=== PATIENT | male | born 1965 | race Caucasian/White ===

== ENCOUNTER 2018-09-10 00:26 | Inpatient (IN) | payer BC, SELFPAY ==
[2018-09-10] MEDS ORDERED: Pantoprazole 40 MG VIAL ONE (00:51)
[2018-09-10] MEDS ORDERED: Dicyclomine 20 MG TAB ONE (00:51)
[2018-09-10 00:55] LABS: #Basophils 0.1 thou/uL (0.0-0.2); #Eosinphils 0.1 thou/uL (0.0-0.7); #Lymphocytes 1.2 thou/uL (1.20-3.40); #Monocytes 1.1 thou/uL (0.11-0.59); #Neutrophils 7.1 thou/uL (1.40-6.50); %Basophils 0.6 % (0.0-1.0); %Eosinophils 1.3 % (0.0-10.0); %Lymphocytes 12.9 % (21.0-51.0); %Monocytes 11.1 % (0.0-10.0); %Neutrophils 74.1 % (42.0-75.0); Hemoglobin 15.2 g/dL (14.0-18.0); Mean Corpuscular HGB CONC 33.1 g/dL (32.0-36.0); Mean Corpuscular Hemoglobin 32.5 pg (27.0-31.0); Mean Corpuscular Volume 98.2 fL (78.0-98.0); Mean Platelet Volume 6.9 fL (7.4-10.4); Platelet Count 243 thou/uL (130-400); RBC Distribution Width 11.4 % (11.5-14.5); Red Blood Cell (RBC) Count 4.67 mill/uL (4.70-6.10); White Blood Cell (WBC) Count 9.6 thou/uL (4.8-10.8)
[2018-09-10 01:15] LABS: ALT (SGPT) 15 U/L (8-55); AST (SGOT) 29 U/L (5-34); Albumin 4.4 g/dL (3.5-5.0); Alkaline Phosphatase 121 U/L (40-150); Anion Gap 15 mmol/L (10-20); BUN (Urea Nitrogen) 10 mg/dL (8.4-25.7); Bilirubin, Total 0.6 mg/dL (0.2-1.2); Calc. Creatinine Clearance 0 mL/min (70-130); Calcium 9.9 mg/dL (7.8-10.44); Carbon Dioxide 25 mmol/L (22-29); Chloride 99 mmol/L (98-107); Estimated GFR-MDRD 79; Globulin 3.8 g/dL (2.4-3.5); Glucose 114 mg/dL (70-105); Lipase 24 U/L (8-78); Potassium 4.1 mmol/L (3.5-5.1); Protein, Total 8.2 g/dL (6.0-8.3); Sodium 135 mmol/L (136-145)
[2018-09-10 02:17] LABS: Bilirubin Negative (Negative); Blood, Urine Negative (Negative); Clarity CLEAR (Clear); Glucose, Urine (Dipstick) Negative (Negative); Leukocyte Negative (Negative); Nitrite Negative (Negative); Protein, Urine (Dipstick) Negative (Neg-Trace); Specific Gravity, Urine 1.042 (1.002-1.036); Urobilinogen 0.2 mg/dL (0.2-1.0); pH, Urine 7.5 (5.0-9.0)
[2018-09-10] MEDS ORDERED: Morphine 4 MG/ML VIAL ONE (02:43)
[2018-09-10] MEDS ORDERED: Ondansetron PF 4 MG/2 ML Vial IVP PRN ×2 (05:18→05:21)
[2018-09-10] MEDS ORDERED: Acetaminophen 325 MG TAB PO PRN ×4 (05:18→05:21)
[2018-09-10] MEDS ORDERED: Sodium Chloride 0.9% 1,000 ML IV SCH (05:18)
[2018-09-10] MEDS ORDERED: Ondansetron ODT 4 MG TAB SL PRN ×2 (05:18→05:21)
--- NOTE | 2018-09-10 05:18 | PDOC.FPRHP ---
- History of Present Illness Chief Complaint: abdominal pain History of Present Illness: 53 yo M with PMH HTN, depression presents with severe abdominal pain. Reports 1 day hx pain that woke him up from sleep @ 0400. Pain sharp, worse in epigastric region, constant with worsening bursts. No aggravating or alleviated factors. Describes it as "gas pain x100". Radiates up to chest/esophagus. Went to [facility] earlier in day and discharged home. Denies N/V, melena, bloody stool. Reports constipation. Last good BM Thursday, took 2 dulcolax and had small amount of BM today. Has hx chronic constipation for past few years, takes mag citrate for it. Denies weight or appetite change, fever, chills, night sweats. Pain is currently 9/10 after 4mg morphine and bentyl. ED Course: zofran, morphine 4mg, protonix, bentyl, 1 L - Allergies/Adverse Reactions Allergies Allergy/AdvReac Type Severity Reaction Status Date / Time No Known Allergies Allergy Verified 09/10/18 05:26 - Home Medications Medication Instructions Recorded Confirmed Type Buprenorphine HCl/Naloxone HCl 1 tab PO DAILY 09/10/18 09/10/18 History [Buprenorphin-Naloxon 8-2 mg Sl] Omeprazole 20 mg PO HS 09/10/18 09/10/18 History Propranolol [Inderal] 20 mg PO DAILY 09/10/18 09/10/18 History Venlafaxine HCl [Venlafaxine HCl 37.5 mg PO DAILY 09/10/18 09/10/18 History ER] buPROPion HCl [buPROPion HCl XL] 300 mg PO DAILY 09/10/18 09/10/18 History - History PMHx: HTN, depression, hx of chronic opioid use, hx of a-fib s/p ablation PSHx: 4 back surgeries, hernia repair, cardiac ablation, hemorrhoid surgery FHx:Mom(72) and grandma- [place]. No cancer hx. Social:Uses [employer] for 20-30 years, 4 beers 2 x/wk, no drug use. Lives with near [place]. Recently moved back [facility] from [place]. Works at [employer] - Review of Systems General: denies: fever/chills, weight/appetite/sleep changes, night sweats, fatigue ENT: denies: nasal congestion, rhinorrhea Respiratory: denies: cough, shortness of breath Cardiovascular: reports: chest pain. denies: palpitation, edema Gastrointestinal: reports: constipation, abdominal pain. denies: nausea, vomiting, diarrhea, GI bleeding Genitourinary: denies: dysuria, discharge Skin: denies: rashes, lesions Musculoskeletal: denies: tenderness, stiffness Neurological: denies: numbness, weakness Psychological: reports: anxiety, depression - Vital signs BP: [162/103] HR: [86] RR: [22] Tmax: [99.5] Pox: [97]% on [RA] Wt: [124 kg] - Physical Exam Constitutional: awake, alert and oriented (uncomfortable d/t pain), well developed HEENT: normocephalic and atraumatic, PERRLA, conjunctiva clear, no scleral icterus, grossly normal vision, grossly normal hearing, normal nasal mucosa, MMM Heart: RRR, normal S1/S2, no murmurs/rubs/gallops, pulses present, no edema Lungs: CTAB, no respiratory distress, no wheezing Abdomen: bowel sounds present, no masses/distention, other (diffusely TTP) Musculoskeletal: normal structure, normal tone Neurological: no focal deficit Skin: capillary refill <2 seconds Heme/Lymphatic: no unusual bruising or bleeding Psychiatric: normal mood and affect FMR H&P: Results - Labs Result Diagrams: 09/10/18 00:47 09/10/18 00:47 Lab results: WBC 9.6 thou/uL (4.8-10.8) 09/10/18 00:47 Hgb 15.2 g/dL (14.0-18.0) 09/10/18 00:47 Hct 45.9 % (42.0-52.0) 09/10/18 00:47 MCV 98.2 fL (78.0-98.0) H 09/10/18 00:47 Plt Count 243 thou/uL (130-400) 09/10/18 00:47 Neutrophils % 74.1 % (42.0-75.0) 09/10/18 00:47 Sodium 135 mmol/L (136-145) L 09/10/18 00:47 Potassium 4.1 mmol/L (3.5-5.1) 09/10/18 00:47 Chloride 99 mmol/L (98-107) 09/10/18 00:47 Carbon Dioxide 25 mmol/L (22-29) 09/10/18 00:47 BUN 10 mg/dL (8.4-25.7) 09/10/18 00:47 Creatinine 0.98 mg/dL (0.7-1.3) 09/10/18 00:47 Glucose 114 mg/dL (70-105) H 09/10/18 00:47 Lactic Acid 1.5 mmol/L (0.5-2.2) 09/10/18 03:37 Calcium 9.9 mg/dL (7.8-10.44) 09/10/18 00:47 Total Bilirubin 0.6 mg/dL (0.2-1.2) 09/10/18 00:47 AST 29 U/L (5-34) 09/10/18 00:47 ALT 15 U/L (8-55) 09/10/18 00:47 Alkaline Phosphatase 121 U/L (40-150) 09/10/18 00:47 Serum Total Protein 8.2 g/dL (6.0-8.3) 09/10/18 00:47 Albumin 4.4 g/dL (3.5-5.0) 09/10/18 00:47 Lipase 24 U/L (8-78) 09/10/18 00:47 Urine Ketones Negative mg/dL (Negative) 09/10/18 02:00 Urine Blood Negative (Negative) 09/10/18 02:00 Urine Nitrite Negative (Negative) 09/10/18 02:00 Ur Leukocyte Esterase Negative (Negative) 09/10/18 02:00 FMR H&P: A/P - Problem List (1) Intractable abdominal pain Current Visit: Yes Status: Acute Code(s): R10.9 - UNSPECIFIED ABDOMINAL PAIN (2) Gallbladder mass Current Visit: Yes Status: Acute Code(s): K82.8 - OTHER SPECIFIED DISEASES OF GALLBLADDER (3) HTN (hypertension) Current Visit: Yes Status: Acute Code(s): I10 - ESSENTIAL (PRIMARY) HYPERTENSION (4) Depression Current Visit: Yes Status: Acute Code(s): F32.9 - MAJOR DEPRESSIVE DISORDER , SINGLE EPISODE, UNSPECIFIED (5) A-fib Current Visit: Yes Status: Acute Code(s): I48.91 - UNSPECIFIED ATRIAL FIBRILLATION (6) H/O cardiac radiofrequency ablation Current Visit: Yes Status: Acute Code(s): Z98.890 - OTHER SPECIFIED POSTPROCEDURAL STATES - Plan Intractable abdominal pain 2/2 newly found mass likely carcinoma w/ metastasis - CT ab/pelvis showed gallbladder thickening, hypodense liver lesions concerning for metastasis, large necrotic lymph node near pancreatic head - LFTs normal - consider GI vs surgery consult in am, will need oncology consult as well - morphine 4mg IV prn, will adjust as necessary for improved pain control - non-emergent MRI for further evaluation recommended Constipation - stool softeners latisha and prn HTN - continue home BB - BP elevated 2/2 pain Depression - plan to continue home wellbutrin and effexor Hx opiod use - takes suboxone once daily (TID is prescribed) Afib s/p ablation Diet: NPO Ppx: SCDs Code: FULL Dispo: admit to oncology inpatient FMR H&P: Upper Level - Pertinent history 53 yr old pleasant WM with hx of depression, chronic opioid dependence, and HTN presents for severe abdominal pain. States he woke with the pain around 0400 ( 24 hrs [employer]) and has worsened throughout the day. The pain is constant but comes in wave pattern. Described as gas pain x 100 and is very sharp. The pain radiates up into his chest and esophagus, so it feels. He has not had nausea or vomiting. He does have some chronic constipation and took 2 dulcolax yesterday but has not helped. He had a small BM yesterday and prior to that was 4 days ago. He went to [facility] earlier today for the pain but was sent home with return precautions. He has tried positional changes but nothing seems to make the pain better or particularly worse. He denies changes in weight or weight loss, has had normal energy. No fever/ chills. No diarrhea. No blood in stool or melanotic stool. - Pertinent findings Gen: no acute distress but does appear uncomfortable from pain Heart: RRR, No M/R/G Lungs: CTAB, NO w/r/r Abd: pos murphys, diffusely tender to light and deep palpation in epigastric region and RUQ Ext: no edema in BLE Neuro: no focal deficits, CN 2-[address] abd: irregular gallbladder wall thickening suspicious for neoplastic infiltration. several indeterminant hpodensities seen scattered throughout the liver possibly liver mets, 5.1x2.2.5.2 cm necrotic mass in aishwarya hepatis lateral and posterior to pancreatic head compatible with enlarged lymph node - Plan Date/Time: 09/10/18 5340 I, [Autumn Davila], have evaluated this patient and agree with findings/plan as outlined by social media intern resident. Pertinent changes/additions are listed here. Abdominal pain likely 2/2 gallbladder mass/necrotic mass -normal LFTs -will obtain gallbladder US to further assess CBD and mass -GI consult later this AM for further evaluation -will give PRN morphine and if not adequate, may consider anesthesia consult for further pain control large necrotic mass surrounding pancreatic head -possibly a lymph node -recommend surgery and GI consult gallbladder wall thickening possible liver mets HTN -severe range elevation however likely 2/2 severe pain -cont home meds, may need to add additional agent Depression -cont home meds Hx of a-fib -s/p ablation with normal rate and rhythm currently PCP: [facility] Code status: Full Diet: NPO DVT ppx: hold for now in case of any procedure today Addendum - Attending - Attending Attestation Date/Time: 09/10/18 1220 I personally evaluated the patient and discussed the management with Dr. Harman. I agree with and repeated the History, Examination, Assessment and Plan documented above with any addition or exceptions noted below. Will d/w surgery.
[2018-09-10] MEDS ORDERED: Polyethylene Glycol 3350 17 GM Packet PO PRN (05:19)
[2018-09-10] MEDS ORDERED: Ondansetron ODT 4 MG TAB PO PRN (05:19)
[2018-09-10] MEDS ORDERED: Morphine 4 MG/ML VIAL SLOW IVP PRN (05:19)
[2018-09-10 05:33] VITALS: BMI 34.1
[2018-09-10] MEDS: Morphine 4 MG/ML VIAL SLOW IVP PRN ×5 (05:48→22:24)
[2018-09-10] MEDS: Sodium Chloride 0.9% 1,000 ML IV SCH ×2 (05:51→16:04)
--- NOTE | 2018-09-10 08:05 | CT ---
PRELIMINARY REPORT/[facility]/EMERGENTY AFTER-HOURS PROCEDURE CT Abdomen and Pelvis With Contrast EXAM DATE/TIME: 09/10/2018 12:53 AM CLINICAL HISTORY: 53 years old, male; Pain; Abdominal pain; Acute; Patient HX: M53 presents to the ed via ems for evalu ation of abdominal pain x3-4 days. PT. Reports that he was seen at [place] at 1600 today, was discharged home. PT. Reports associated constipation, reports that his last bm was today. PT. Report s associated straining during bm. PT. Denies any blood in stool, denies passing gas. PT. Describes pa in as cramping, localized diffusely across abdomen and upward into chest. PT. Reports HX of hernia schulz rgery. PT. Reports that his last colonoscopy was 1 year ago. PT. Denies having any CT imaging done at previous facility, was concerned for appendicitis. PT. Denies any n/v o r other associated symptoms TECHNIQUE: Axial computed tomography images of the abdomen and pelvis with intravenous contrast. Coronal reformatted images were created and reviewed. COMPARISON: No relevant prior studies available. FINDINGS: Lower thorax: There is subpleural atelectasis of the dependent portions of the lungs. ABDOMEN: Liver: There are several indeterminate hypodensities seen scattered throughout the liver possibly rep resenting liver metastases. Gallbladder and bile ducts: There is irregular gallbladder wall thickening suspicious for neoplastic infiltration. Pancreas: The pancreas appears normal. No ductal dilatation. Spleen: The spleen is normal. Adrenals: Normal. No mass. Kidneys and ureters: Normal. No hydronephrosis. Stomach and bowel: The stomach is normal. Appendix: No evidence of appendicitis. PELVIS: Bladder: Unremarkable as visualized. Reproductive: The prostate gland and seminal vesicles are normal. ABDOMEN and PELVIS: Intraperitoneal space: Normal. No free air. No significant fluid collection. Bones/joints: No acute fracture. No dislocation. Soft tissues: Unremarkable. Vasculature: Normal. No abdominal aortic aneurysm. Lymph nodes: There is a 5.1 x 2.2 x 5.2 cm necrotic mass in the aishwarya hepatis lateral and posterior to the pancreatic head compatible with a suspiciously enlarged lymph node. IMPRESSION: 1. Possible gallbladder mass with liver metastases. If not already performed, non-emergent MRI may pr ovide better characterization. 2. Abnormally enlarged aishwarya hepatis lymph node suspicious for neoplasm. Findings were discussed with NASIM briscoe at 09/10/2018 2:50 AM EMERGENCY MAN. Thank you for allowing us to participate in the care of your patient. Dictated and Authenticated by: Alvaro Calvin MD 09/10/2018 2:50 AM Central Time ([place] & [place]) FINAL REPORT CT ABDOMEN AND PELVIS WITH IV CONTRAST: 09/10/2018 0054 HOURS HISTORY: Abdominal pain. Exam performed on an emergency basis. FINDINGS: Agree with the preliminary report by from [facility]. Heterogeneously enhancing mass near the aishwarya hepatis, adjacent to the pancreatic head, is confirmed. There is also poor definition of the gallbladder wall, at the fundus, with some thickening apparent . Possible mass. Very subtle low density masses are present within the dome of the right liver lobe . Primary concern is neoplasm over inflammation, with possible origin of neoplasm at the gallbladder neck, pancreatic head, or liver, with metastatic disease. Unfortunately, the lesions do not lend th emselves well to percutaneous biopsy. Please consider endoscopic evaluation for potential ultrasound -guided endoscopic biopsy. POS: [facility]
[2018-09-10 08:45] LABS: Syphilis Antibody Nonreactive (Nonreactive); Syphilis Antibody Index 0.07 S/CO (<1.00 Non-Reactive)
[2018-09-10 08:57] LABS: HBCM Index 0.05 S/CO (0-0.79); HBSAg Index 0.28 S/CO (0-0.99); HIV (1/2) Antibody/Antigen Non-Reactive (NonReactive); HIV 1/2 INDEX 0.08 S/CO (<1.00); Hep A IgM AB Non-Reactive (NonReactive); Hep A IgM S/CO 0.11 S/CO (0-0.79); Hep B Surf Ag Non-Reactive S/CO (NonReactive); Hep C IgG Ab Non-Reactive (NonReactive); Hepatitis B Core IgM Abs Non-Reactive (NonReactive)
[2018-09-10] MEDS ORDERED: Propranolol 40 MG TAB PO SCH (09:00)
[2018-09-10] MEDS ORDERED: Enoxaparin Sodium 40 MG/0.4 ML SYRINGE SC SCH (09:00)
[2018-09-10] MEDS ORDERED: Non-Formulary Item 1 EACH (Bupropion Hcl [Bupropion Hcl Xl] 300 MG) PO SCH (09:00)
--- NOTE | 2018-09-10 09:33 | RAD ---
CHEST TWO VIEWS: HISTORY: Abdominal pain, radiating to the chest. COMPARISON: None. FINDINGS: Two views of the chest show normal sized cardiomediastinal silhouette. There is no evidence of consol idation, mass, or pleural effusion. The bones are unremarkable. IMPRESSION: No evidence of acute cardiopulmonary disease. POS: C
[2018-09-10] MEDS ORDERED: ISOVUE-370 76%-LOCM 1 ML ONE (09:46)
[2018-09-10] MEDS: Bupropion 150 MG XL TAB PO SCH (10:21)
[2018-09-10] MEDS: Venlafaxine XR 37.5 MG CAP PO SCH (10:22)
[2018-09-10] MEDS: Propranolol HCl 20 MG TAB PO SCH (10:23)
[2018-09-10] MEDS: Senokot S 8.6-50 MG TAB PO SCH ×2 (10:27→22:20)
[2018-09-10] MEDS ORDERED: Non-Formulary Item 1 EACH (Omeprazole [Omeprazole] 20 MG) PO SCH (21:00)
[2018-09-11] MEDS ORDERED: HYDROcodone/Acetaminophen 10/325 mg Tablet PO SCH (00:45)
[2018-09-11] MEDS: Morphine 4 MG/ML VIAL SLOW IVP PRN ×5 (02:29→21:33)
--- NOTE | 2018-09-11 05:48 | PDOC.FM ---
Addendum entered and electronically signed by Trish Mo MD 09/11/18 08:33 : -Despite history of chronic drug abuse, patient's pain is uncontrolled and relieved only with Amasa -Will give norco with moprhine for breakthrough pain Original Note: - Subjective Subjective: NAEO, pain well controlled on morphine q4hr. Still pending status on transfer to higher level of care for further diagnostic workup. Denies nausea, vomiting, diarrhea. - Objective MAR Reviewed: Yes Vital Signs & Weight: Vital Signs (12 hours) Temp Pulse Resp BP Pulse Ox 09/11/18 04:05 97.9 F 79 12 122/76 95 09/10/18 23:49 99.0 F 80 12 144/75 H 92 L 09/10/18 20:00 92 L 09/10/18 19:45 98.8 F 77 18 157/85 H 92 L Weight Weight 123.887 kg I&O: 09/09/18 09/10/18 09/11/18 06:59 06:59 06:59 Intake Total 2043 Output Total 650 Balance 1393 Result Diagrams: 09/10/18 00:47 09/10/18 00:47 Phys Exam - Physical Examination Constitutional: NAD HEENT: PERRLA, moist MMs, sclera anicteric, TM's clear Neck: supple, full ROM Cardiovascular: RRR, no significant murmur Gastrointestinal: soft epigastric tenderness, no peritoeal signs Neurological: moves all 4 limbs Psychiatric: normal affect, A&O x 3 Skin: cap refill <2 seconds Dx/Plan (1) Intractable abdominal pain Code(s): R10.9 - UNSPECIFIED ABDOMINAL PAIN Status: Acute (2) Gallbladder mass Code(s): K82.8 - OTHER SPECIFIED DISEASES OF GALLBLADDER Status: Acute (3) Chronic drug abuse Code(s): F19.10 - OTHER PSYCHOACTIVE SUBSTANCE ABUSE, UNCOMPLICATED Status: Acute (4) A-fib Code(s): I48.91 - UNSPECIFIED ATRIAL FIBRILLATION Status: Acute (5) Depression Code(s): F32.9 - MAJOR DEPRESSIVE DISORDER, SINGLE EPISODE, UNSPECIFIED Status : Acute (6) H/O cardiac radiofrequency ablation Code(s): Z98.890 - OTHER SPECIFIED POSTPROCEDURAL STATES Status: Acute (7) HTN (hypertension) Code(s): I10 - ESSENTIAL (PRIMARY) HYPERTENSION Status: Acute - Plan Plan: 53 yo M with 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 admitted for intractable abdominal pain secondary to this Intractable abdominal pain 2/2 GB mass/necrosis - CT ab/pelvis showed gallbladder thickening, hypodense liver lesions concerning for metastasis, large necrotic lymph node near pancreatic head - LFTs normal - Pain controlled on morphine 4mg IV PRN - If high level of care will take long time, will try weaning patient to PO meds for pain and d/c if pain controlled Constipation - stool softeners latisha and prn HTN - continue home BB - BP elevated 2/2 pain Depression - plan to continue home wellbutrin and effexor Hx opiod use - takes suboxone once daily (TID is prescribed) Afib s/p ablation -rate controlled, asx, stable Diet: Ppx: SCDs Code: FULL Dispo: Needs transfer to higher level of care for endoscopic ultrasound. Working on PO pain control if unable to transfer soon. Addendum - Attending - Attending Attestation Date/Time: 09/11/18 0262 I personally evaluated the patient and discussed the management with Dr. Mo I agree with the History, Examination, Assessment and Plan documented above with any addition or exceptions noted below. spoke with Dr Saldana with [facility] USERCP not done urgently POC to control pain and schedule outpatient GI f/u for USERCP with biopsy. If pain remains intractable will [facility] will reconsider acceptance after weekend for Higher level of care.
[2018-09-11] MEDS ORDERED: HYDROcodone/Acetaminophen 5/325 mg Tablet PO PRN (08:06)
[2018-09-11] MEDS ORDERED: traMADol HCl 50 MG TAB PO SCH (08:15)
[2018-09-11] MEDS ORDERED: HYDROcodone/Acetaminophen 5/325 mg Tablet PO SCH (09:00)
[2018-09-11] MEDS: Enoxaparin Sodium 40 MG/0.4 ML SYRINGE SC SCH (09:29)
[2018-09-11] MEDS: HYDROcodone/Acetaminophen 5/325 mg Tablet PO SCH ×4 (09:36→20:32)
[2018-09-11] MEDS: Senokot S 8.6-50 MG TAB PO SCH ×2 (09:38→20:32)
[2018-09-11] MEDS: Bupropion 150 MG XL TAB PO SCH (09:38)
[2018-09-11] MEDS: Propranolol HCl 20 MG TAB PO SCH (09:39)
[2018-09-11] MEDS: Venlafaxine XR 37.5 MG CAP PO SCH (09:39)
[2018-09-12] MEDS: HYDROcodone/Acetaminophen 5/325 mg Tablet PO SCH ×5 (00:35→21:18)
[2018-09-12] MEDS: Morphine 4 MG/ML VIAL SLOW IVP PRN (01:32)
[2018-09-12] MEDS ORDERED: Morphine ER 15 MG TAB PO SCH ×2 (03:15→09:00)
[2018-09-12] MEDS ORDERED: HYDROcodone/Acetaminophen 5/325 mg Tablet PO PRN (05:43)
[2018-09-12] MEDS ORDERED: Morphine 4 MG/ML VIAL SLOW IVP PRN (05:44)
--- NOTE | 2018-09-12 05:48 | PDOC.FM ---
- Subjective Subjective: pain controlled with norco. no BM for few days, would like something. abd pain improved overall. - Objective MAR Reviewed: Yes Vital Signs & Weight: Vital Signs (12 hours) Temp Pulse Resp BP Pulse Ox 09/12/18 03:42 98.3 F 74 16 119/72 92 L 09/11/18 23:31 98.6 F 76 12 126/76 93 L 09/11/18 20:00 98 09/11/18 19:46 98.1 F 80 12 139/82 98 Weight Weight 123.887 kg I&O: 09/10/18 09/11/18 09/12/18 06:59 06:59 06:59 Intake Total 2355 Output Total 650 Balance 1705 Result Diagrams: 09/10/18 00:47 09/12/18 11:40 Phys Exam - Physical Examination Constitutional: NAD HEENT: PERRLA, moist MMs Neck: no nodes, full ROM Respiratory: no wheezing, clear to auscultation bilateral Cardiovascular: RRR, no significant murmur Gastrointestinal: soft, no distention mild TTP over right lower intercostal areas Neurological: non-focal, normal sensation, moves all 4 limbs Psychiatric: normal affect, A&O x 3 Dx/Plan (1) Intractable abdominal pain Code(s): R10.9 - UNSPECIFIED ABDOMINAL PAIN Status: Acute (2) Gallbladder mass Code(s): K82.8 - OTHER SPECIFIED DISEASES OF GALLBLADDER Status: Acute (3) Chronic drug abuse Code(s): F19.10 - OTHER PSYCHOACTIVE SUBSTANCE ABUSE, UNCOMPLICATED Status: Acute (4) A-fib Code(s): I48.91 - UNSPECIFIED ATRIAL FIBRILLATION Status: Acute (5) Depression Code(s): F32.9 - MAJOR DEPRESSIVE DISORDER, SINGLE EPISODE, UNSPECIFIED Status : Acute (6) H/O cardiac radiofrequency ablation Code(s): Z98.890 - OTHER SPECIFIED POSTPROCEDURAL STATES Status: Acute (7) HTN (hypertension) Code(s): I10 - ESSENTIAL (PRIMARY) HYPERTENSION Status: Acute - Plan Plan: 53 yo M with 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 for USERCP. Or else can discharge with outpt follow up Constipation - senekot and miralax STEPHY HTN - continue home BB - BP elevated 2/2 pain Depression - plan to continue home wellbutrin and effexor Hx opiod use - takes suboxone once daily (TID is prescribed) Afib s/p ablation -rate controlled, asx, stable Diet: HH Ppx: SCDs Code: FULL Dispo: Pain control with PO meds: MS contin & Malone STEPHY. Chest/Abd pain- possible constipation, will add miralax STEPHY daily, CT Chest to eval for mets. If pain controlled can d/c later this evening Addendum - Attending - Attending Attestation Date/Time: 09/12/18 7626 I personally evaluated the patient and discussed the management with I agree with the History, Examination, Assessment and Plan documented above with any addition or exceptions noted below. will start scheduled norco and CT chest today ok dismiss if pain controled and stable for outpatient f/u US ERCP with GI at [facility] providers in [place] unless inpt transfer indicated. Have been in contact with Dr Saldana regard coordination of care to address further diagnostic evaluation.
[2018-09-12] MEDS: Bupropion 150 MG XL TAB PO SCH (08:39)
[2018-09-12] MEDS: Enoxaparin Sodium 40 MG/0.4 ML SYRINGE SC SCH (08:40)
[2018-09-12] MEDS: Morphine ER 15 MG TAB PO SCH ×2 (08:40→21:16)
[2018-09-12] MEDS: Senokot S 8.6-50 MG TAB PO SCH ×2 (08:41→21:16)
[2018-09-12] MEDS: Propranolol HCl 20 MG TAB PO SCH (08:41)
[2018-09-12] MEDS: Venlafaxine XR 37.5 MG CAP PO SCH (08:42)
[2018-09-12] MEDS: Polyethylene Glycol 3350 17 GM Packet PO SCH (08:45)
[2018-09-12] MEDS ORDERED: ISOVUE-370 76%-LOCM 1 ML ONE (10:00)
[2018-09-12] MEDS ORDERED: HYDROcodone/Acetaminophen 5/325 mg Tablet PO SCH ×2 (12:00→13:00)
[2018-09-12 12:07] LABS: Anion Gap 17 mmol/L (10-20); BUN (Urea Nitrogen) 11 mg/dL (8.4-25.7); Calc. Creatinine Clearance 134 mL/min (70-130); Calcium 9.4 mg/dL (7.8-10.44); Carbon Dioxide 23 mmol/L (22-29); Chloride 103 mmol/L (98-107); Estimated GFR-MDRD 70; Glucose 120 mg/dL (70-105); Potassium 3.9 mmol/L (3.5-5.1); Sodium 139 mmol/L (136-145)
--- NOTE | 2018-09-12 14:36 | CT ---
CT OF CHEST WITH CONTRAST: Date: 09/12/18 INDICATION: Right chest pain. History of recently diagnosed gallbladder abnormality with adjacent findings suspic ious for metastasis at the upper abdomen. FINDINGS: Granulomatous calcification is seen within the chest. There are bilateral linear densities of each irene ng indicating subsegmental atelectasis. No evidence of pulmonary mass. No effusion or pneumothorax. T horacic lymph nodes are not enlarged by size criteria. There is atherosclerotic vascular disease and coronary artery calcium is noted. Please reference preceding CT from 2 days prior for details regardi ng pathologic findings of the gallbladder, which are concerning for gallbladder carcinoma with adjace nt invasion into hepatic parenchyma and large necrotic appearing central abdominal adenopathy, with f indings suspicious for malignancy and metastasis. There are additional enlarged upper abdominal lymph nodes, also likely metastatic in etiology. Evaluation of regional osseous structures reveals degener ative change. IMPRESSION: 1. No pulmonary metastatic disease is confirmed. 2. Partially imaged upper abdomen redemonstrates findings concerning for gallbladder carcinoma with regional invasion of the adjacent liver, as well as metastatic adenopathy of the visualized upper abd omen. POS: [facility]
[2018-09-12] MEDS ORDERED: hydrOXYzine 25 MG TAB PO SCH (17:00)
[2018-09-13] MEDS: HYDROcodone/Acetaminophen 5/325 mg Tablet PO SCH ×6 (02:04→21:55)
[2018-09-13] MEDS ORDERED: hydrOXYzine 25 MG TAB PO SCH (03:15)
--- NOTE | 2018-09-13 07:36 | PDOC.FM ---
- Subjective Subjective: Endorses pain controlled on MS Contin 15mg BID and norco for breakthrough pain. Would like to go home and schedule procedure outpatient. - Objective MAR Reviewed: Yes Vital Signs & Weight: Vital Signs (12 hours) Temp Pulse Resp BP Pulse Ox 09/13/18 05:41 97.8 F 73 18 121/71 94 L 09/12/18 20:00 96 Weight Weight 123.887 kg I&O: 09/12/18 09/13/18 09/14/18 06:59 06:59 06:59 Intake Total 312 Balance 312 Result Diagrams: 09/10/18 00:47 09/12/18 11:40 Phys Exam - Physical Examination Constitutional: NAD Respiratory: no wheezing, no rales, clear to auscultation bilateral Cardiovascular: RRR, no significant murmur Gastrointestinal: soft, non-tender, no distention Musculoskeletal: no edema, pulses present Neurological: non-focal, normal sensation Psychiatric: normal affect, A&O x 3 Skin: no rash, cap refill <2 seconds Dx/Plan (1) Opioid dependence Code(s): F11.20 - OPIOID DEPENDENCE, UNCOMPLICATED Status: Acute (2) A-fib Code(s): I48.91 - UNSPECIFIED ATRIAL FIBRILLATION Status: Acute (3) Depression Code(s): F32.9 - MAJOR DEPRESSIVE DISORDER, SINGLE EPISODE, UNSPECIFIED Status : Acute (4) Gallbladder mass Code(s): K82.8 - OTHER SPECIFIED DISEASES OF GALLBLADDER Status: Acute (5) HTN (hypertension) Code(s): I10 - ESSENTIAL (PRIMARY) HYPERTENSION Status: Acute (6) Intractable abdominal pain Code(s): R10.9 - UNSPECIFIED ABDOMINAL PAIN Status: Acute - Plan Plan: 53 yo M with 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 admitted for intractable abdominal pain secondary to this Intractable abdominal pain 2/2 GB mass/necrosis - CT ab/pelvis showed gallbladder thickening, hypodense liver lesions concerning for metastasis, large necrotic lymph node near pancreatic head, atelectasis - LFTs normal - Heme/onc consulted, recs appreciated - MS contin STEPHY with [place] for breakthrough - Pain controlled, plan for discharge Constipation - senekot and miralax STEPHY HTN - continue home BB - BP elevated 2/2 pain Depression - continue home wellbutrin and effexor Hx opiod use - takes suboxone once daily at home -since pain uncontrolled, started pt on MS Contin and norco prn Afib s/p ablation -rate controlled, asx, stable Diet: HH Ppx: SCDs Code: FULL Dispo: likely dc today pending follow-up with GI outpatient Addendum - Attending - Attending Attestation Date/Time: 09/13/18 [id number] I personally evaluated the patient and discussed the management with Dr. Jose L Harman I agree with the History, Examination, Assessment and Plan documented above with any addition or exceptions noted below. 53 yo male admitted for intractable abdominal pain. HD#3 Patient denies pain. No acute events overnight. Tolerating PO well. Pain controlled on PO meds. VS reviewed. Labs reviewed. Imaging reviewed. NAD. Sitting up in bed. RRR. No murmurs. CTAB. No w/c/r BS present. 1. Intractable abdominal pain: Controlled on PO pain meds. 2. Gallbladder mass: Elevated CA 19 and CEA. Imaging concerning for mets to liver and lymph nodes. Needs endoscopic US at [facility]. Awaiting appointment prior to allowing d/c. Since patient's pain controlled will send as outpatient instead of inpatient. Discussed with patient. Patient agrees. 3. hx of opiate abuse: No pill seeking behavior. Risk for relapse. Patient to monitor closely. Attempt to treat pain with OTC medication with opiates for breakthrough. Awaiting outpatient processing prior to d/c. CM eldon. Caprice
[2018-09-13] MEDS: Enoxaparin Sodium 40 MG/0.4 ML SYRINGE SC SCH (08:46)
[2018-09-13] MEDS: Bupropion 150 MG XL TAB PO SCH (08:46)
[2018-09-13] MEDS: Venlafaxine XR 37.5 MG CAP PO SCH (08:47)
[2018-09-13] MEDS: Senokot S 8.6-50 MG TAB PO SCH ×2 (08:47→20:07)
[2018-09-13] MEDS: Morphine ER 15 MG TAB PO SCH ×2 (08:47→20:08)
[2018-09-13] MEDS: Propranolol HCl 20 MG TAB PO SCH (08:47)
[2018-09-13] MEDS: Polyethylene Glycol 3350 17 GM Packet PO SCH (08:48)
[2018-09-13] MEDS ORDERED: hydrOXYzine 25 MG TAB PO PRN (18:27)
[2018-09-14] MEDS: HYDROcodone/Acetaminophen 5/325 mg Tablet PO SCH ×3 (01:56→10:39)
--- NOTE | 2018-09-14 07:11 | PDOC.EVN ---
Event Note - Event Note Event Note: I was paged by nurse ~1400 stating patient wanted to talk about plan and that he would prefer to go home because his pain was under control. Spoke with attending physician Dr Patterson and scripts were written for his home pain medications. Went to see patient and reviewed in detail medications with patient. On MS contin and [place]. Pt agreed with plan at that time for discharge with pain medications. Also discussed options regarding GI f/u. I told him we had placed a call to GI at [facility] yesterday and our phone call was not returned, thus we had not been able to schedule him an outpatient appointment. Pt understood this and I assured him we would reach out to him when we heard back. I confirmed his and his 's phone number. Pt agreed to this plan and stated he would call his back in a couple of hours to get him. Pt calm and conversational. I was again paged by the nurse stating patient was angry regarding the frequency of the [place] Rx. It was written for q6hrs PRN and patient wanted it q4hrs PRN. Explained although it is medically safe to take q4hrs for his medical problem requiring pain treatment, not all pharmacies will fill [place] Rx with Q4hr frequency, and that it was written like that to ensure he could actually get his medications. Pt stated he understood this and denied additional questions. Although he does have a history of opioid abuse, it has been determined he needs pain control due to his liver/gallbladder mass that causes him pain. This encounter did lead me to believe he was displaying drug seeking behavior as he kept bringing up the pain medications and how important that was to him. Around 6:30, nurse paged again stating patient was angry and upset with his care. I again went to patient's room where he stated he was promised a GI appointment prior to discharge and he didn't want doctors "dicking with my pain medications". I apologized to patient after about 10 minutes of enduring his yelling and complaining about his care. I also explained our previous conversation earlier where he agreed to being discharged without an appointment because he was ready to go home. I also reminded him we talked through his pain medication regimen several times and he stated after thinking about it further that would not work for him. I asked him what we could do for him and he said have the morning team talk to him in detail about his case. I said we would do that and cancelled the discharge order. I notified Dr Patterson and night physicians of our conversation and Dr Patterson asked night team to offer to transfer him to [facility] to hopefully speed up his care. Kaveh Roa DO
[2018-09-14 07:56] VITALS: BP 129/72; TEMP 97.5
[2018-09-14] MEDS: Bupropion 150 MG XL TAB PO SCH (08:40)
[2018-09-14] MEDS: Polyethylene Glycol 3350 17 GM Packet PO SCH (08:40)
[2018-09-14] MEDS: Morphine ER 15 MG TAB PO SCH (08:41)
[2018-09-14] MEDS: Propranolol HCl 20 MG TAB PO SCH (08:41)
[2018-09-14] MEDS: Venlafaxine XR 37.5 MG CAP PO SCH (08:41)
[2018-09-14] MEDS: Senokot S 8.6-50 MG TAB PO SCH (08:42)
[2018-09-14] MEDS: Enoxaparin Sodium 40 MG/0.4 ML SYRINGE SC SCH (08:42)
--- NOTE | 2018-09-14 11:32 | PDOC.FM ---
- Subjective Subjective: Pt desires to be discharged home this morning and will follow-up with GI specialist at [facility]. Pt given phone number. Pt provided with norco script and instructed to follow-up with PCP in 2-3 days. - Objective MAR Reviewed: Yes Vital Signs & Weight: Vital Signs (12 hours) Temp Pulse Resp BP Pulse Ox 09/14/18 08:00 96 09/14/18 07:52 97.5 F L 74 16 129/72 96 Weight Weight 123.887 kg I&O: 09/13/18 09/14/18 09/15/18 06:59 06:59 06:59 Intake Total 312 760 Balance 312 760 Result Diagrams: 09/10/18 00:47 09/12/18 11:40 Phys Exam - Physical Examination Constitutional: NAD no increased work of breathing Psychiatric: normal affect, A&O x 3 Dx/Plan (1) Opioid dependence Code(s): F11.20 - OPIOID DEPENDENCE, UNCOMPLICATED Status: Acute (2) A-fib Code(s): I48.91 - UNSPECIFIED ATRIAL FIBRILLATION Status: Acute (3) Depression Code(s): F32.9 - MAJOR DEPRESSIVE DISORDER, SINGLE EPISODE, UNSPECIFIED Status : Acute (4) Gallbladder mass Code(s): K82.8 - OTHER SPECIFIED DISEASES OF GALLBLADDER Status: Acute (5) HTN (hypertension) Code(s): I10 - ESSENTIAL (PRIMARY) HYPERTENSION Status: Acute (6) Intractable abdominal pain Code(s): R10.9 - UNSPECIFIED ABDOMINAL PAIN Status: Acute - Plan Plan: 3 yo M with 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 admitted for intractable abdominal pain Intractable abdominal pain 2/2 GB mass/necrosis - CT ab/pelvis showed gallbladder thickening, hypodense liver lesions concerning for metastasis, large necrotic lymph node near pancreatic head, atelectasis - LFTs normal - Heme/onc consulted, recs appreciated - MS contin STEPHY with [place] for breakthrough - Pain controlled, pt would like to be discharged with outpatient follow-up. Given phone number to schedule appointment. Constipation - senekot and miralax STEPHY HTN - continue home BB - BP elevated 2/2 pain Depression - continue home wellbutrin and effexor Hx opiod use -takes suboxone once daily at home -since pain uncontrolled, started pt on MS Contin and norco prn Afib s/p ablation -rate controlled, asx, stable Diet: HH Ppx: SCDs Code: FULL Dispo: likely dc today pending follow-up with GI outpatient Addendum - Attending - Attending Attestation Date/Time: 09/14/18 1025 I personally evaluated the patient and discussed the management with Dr. Domingo I agree with the History, Examination, Assessment and Plan documented above with any addition or exceptions noted below. 53 yo male admitted for intractable abdominal pain. HD#4 Tolerating pain well with PO medications. Ok with going home today. Provided patient with Rx and number for scheduling. No acute events overnight other than noted in event note. VS reviewed. Labs reviewed. Imaging reviewed. NAD. Sitting up in bed. RRR. No murmurs. CTAB. No w/c/r BS present. 1. Intractable abdominal pain: Controlled on PO pain meds. 2. Gallbladder mass: Elevated CA 19 and CEA. Imaging concerning for mets to liver and lymph nodes. Needs endoscopic US. Awaiting appointment. Discussed with patient. Patient agrees. 3. hx of opiate abuse: Risk for relapse. Patient to monitor closely. Attempt to treat pain with OTC medication with opiates for breakthrough. Has appointment with PCP on . Awaiting GI appointment. Referral number provided. ABrayMD
[2018-09-14] MEDS ORDERED: hydrOXYzine 25 MG TAB PO SCH (21:00)
--- NOTE | 2018-09-15 13:46 | DIS ---
DATE OF ADMISSION: 09/10/2018 DATE OF DISCHARGE: 09/14/2018 RESIDENT: Kenzie Domingo MD ATTENDING: Beto Hi MD CONSULTS: None. IMAGIN. Abdomen/pelvic CT, impression, hospital gallbladder mass with liver metastasis. Nonemergent MRI may provide better characterization. Abnormally enlarged aishwarya hepatis lymph node suspicious for neoplasm. 2. Chest x-ray, impression, no evidence of acute cardiopulmonary disease. 3. Chest CT, impression, no pulmonary metastatic disease is confirmed. Partially imaged upper abdomen redemonstrates findings concerning for gallbladder carcinoma with regional invasion of the adjacent liver, as well as metastatic adenopathy of the visualized upper abdomen. MEDICATIONS: 1. Tylenol 650 mg oral 4 hours as needed. 2. Zofran 4 mg oral every 6 hours as needed. 3. MiraLax 17 g oral daily as needed. 4. Senokot 2 tablets oral twice daily. 5. [place] (5/325 strength) two tablets oral every 4 hours. 6. MS contin 15 mg oral every 12 hours. 7. Omeprazole 20 mg oral at bedtime. 8. Bupropion 300 mg oral daily. 9. Venlafaxine 37.5 mg oral daily. 10. Propranolol 20 mg oral daily. 11. Naloxone 1 tablet oral daily. CONSULTATIONS: General Surgery, Dr. Salinas. PRIMARY DIAGNOSES: 1. Suspected malignancy of unknown primary site. 2. Suspected gallbladder mass. 3. Atrial fibrillation. 4. Hypertension. 5. Intractable abdominal pain. 6. Opioid dependence. HISTORY OF PRESENT ILLNESS/HOSPITAL COURSE: This is a 53-year-old gentleman who initially presented with diffuse abdominal pain, found to have suspicious masses in the liver and gallbladder concerning for malignancy. CT abdomen and pelvis showed gallbladder thickening, hypodense liver lesion concerning for metastasis, large necrotic lymph node down to pancreatic head, he was admitted for intractable pain and does have a history of opioid dependence; however, due to this suspicious malignancy and intractable pain, the patient was started on MS Contin and [place] and Dr. Salinas was consulted who recommended the patient be evaluated by a surgeon who does endoscopic ultrasound to make the formal diagnosis and as to whether or not this patient has a malignancy. Once this pain was controlled, he was discharged on MS Contin with [place] for breakthrough pain and a followup was scheduled with GI specialist at [facility] to obtain an endoscopic ultrasound. The patient did have difficulty with constipation. He was placed on a bowel regimen of MiraLAX and senokot and, in regard to his chronic conditions of hypertension, depression , atrial fibrillation status post ablation, he was restarted on his home medication. DISPOSITION: Stable. DISCHARGE LOCATION: Home. DIET: Heart healthy. ACTIVITY: As tolerated. FOLLOWUP: Recommend a followup with primary care physician. Followup is recommended and that he follow up with the GI specialist at [facility] in [place] for an endoscopic ultrasound for diagnosis of suspected malignancy with unknown primary site. Job ID: [id number] MTDD
== END 2018-09-14 11:20 | disposition home or self-care (01) | DRG 844 ==
LOC: ERS 00:26 → ONC 04:10
PROVIDERS: ADMIT Family Medicine; ATTEND Family Medicine
DX: C80.1 Malignant (primary) neoplasm, unspecified (principal); F11.20 Opioid dependence, uncomplicated; K82.8 Other specified diseases of gallbladder; I10 Essential (primary) hypertension; I48.91 Unspecified atrial fibrillation; K59.00 Constipation, unspecified; F32.9 Major depressive disorder, single episode, unspecified; R10.13 Epigastric pain; R16.0 Hepatomegaly, not elsewhere classified; Z79.899 Other long term (current) drug therapy
CPT/HCPCS: 36415; 71046; 71260; 74177; 80048; 80053; 80074; 81003; 82378; 83605; 83690; 85025; 86301; 86780; 87086; 87389; 87804; 96361; 96374; 96375; C9113; J1650; J2270; Q9966

== ENCOUNTER 2018-10-17 11:45 | Inpatient (IN) | payer BC ==
[2018-10-17 13:07] LABS: ALT (SGPT) 46 U/L (8-55); AST (SGOT) 44 U/L (5-34); Albumin 4.1 g/dL (3.5-5.0); Alkaline Phosphatase 187 U/L (40-150); Anion Gap 11 mmol/L (10-20); BUN (Urea Nitrogen) 14 mg/dL (8.4-25.7); Bilirubin, Total 0.9 mg/dL (0.2-1.2); Calc. Creatinine Clearance 0 mL/min (70-130); Calcium 8.9 mg/dL (7.8-10.44); Carbon Dioxide 27 mmol/L (22-29); Chloride 97 mmol/L (98-107); Estimated GFR-MDRD 89; Globulin 3.2 g/dL (2.4-3.5); Glucose 104 mg/dL (70-105); Lipase 40 U/L (8-78); Potassium 4.5 mmol/L (3.5-5.1); Protein, Total 7.3 g/dL (6.0-8.3); Sodium 130 mmol/L (136-145)
[2018-10-17 13:24] LABS: Hemoglobin 12.5 g/dL (14.0-18.0); Mean Corpuscular HGB CONC 34.1 g/dL (32.0-36.0); Mean Corpuscular Hemoglobin 32.1 pg (27.0-31.0); Mean Corpuscular Volume 94.3 fL (78.0-98.0); RBC Distribution Width 11.3 % (11.5-14.5); Red Blood Cell (RBC) Count 3.89 mill/uL (4.70-6.10); White Blood Cell (WBC) Count 0.4 thou/uL (4.8-10.8)
[2018-10-17 13:38] LABS: Bilirubin Negative (Negative); Blood, Urine Trace (Negative); Clarity CLEAR (Clear); Glucose, Urine (Dipstick) Negative (Negative); Leukocyte Negative (Negative); Nitrite Negative (Negative); Protein, Urine (Dipstick) Negative (Neg-Trace); Specific Gravity, Urine 1.014 (1.002-1.036); Urobilinogen 0.2 mg/dL (0.2-1.0); pH, Urine 6.5 (5.0-9.0)
[2018-10-17 13:40] LABS: Bacteria/HPF None Seen HPF (None Seen); Hyaline Casts/LPF 0-3 HYALINE CAST LPF (0-3 Hyaline); Squamous Epithelial 0-3 HPF (0-3); WBC/HPF 0-3 HPF (0-3)
[2018-10-17 13:43] LABS: Mean Platelet Volume 7.8 fL (7.4-10.4); Platelet Count 47 thou/uL (130-400); Platelet Morphology Comment Appears Decreased; RBC Morphology Normal
[2018-10-17] MEDS ORDERED: Acetaminophen 500 MG TAB ONE (15:14)
[2018-10-17] MEDS ORDERED: Morphine 4 MG/ML VIAL ONE (15:48)
[2018-10-17] MEDS ORDERED: Piperacillin/Tazobactam 3.375 GM VIAL ONE (15:48)
[2018-10-17] MEDS ORDERED: Cefepime 2 GM in Sodium Chloride 0.9% 100 ML IVPB SCH (16:00)
--- NOTE | 2018-10-17 16:52 | RAD ---
PORTABLE UPRIGHT FRONTAL CHEST RADIOGRAPH: 10/17/2018 HISTORY: Diarrhea. Fever. COMPARISON: 09/10/2018 FINDINGS: There is a Port-A-Cath inserted via a right subclavian approach, the distal tip overlying the expecte d location of the proximal SVC. The lungs are clear. IMPRESSION: No acute findings. POS: KAYODE
[2018-10-17] MEDS ORDERED: Morphine 4 MG/ML VIAL SLOW IVP PRN (18:00)
[2018-10-17] MEDS ORDERED: Vancomycin HCl 1 GM in Premix Bag 1 BAG IVPB SCH (18:00)
[2018-10-17 18:35] LABS: Bilirubin Negative (Negative); Blood, Urine Trace (Negative); Clarity CLEAR (Clear); Glucose, Urine (Dipstick) Negative (Negative); Leukocyte Negative (Negative); Nitrite Negative (Negative); Protein, Urine (Dipstick) Negative (Neg-Trace); Specific Gravity, Urine 1.011 (1.002-1.036); Urobilinogen 0.2 mg/dL (0.2-1.0)
[2018-10-17 18:37] LABS: Bacteria/HPF None Seen HPF (None Seen); Hyaline Casts/LPF 0-3 HYALINE CAST LPF (0-3 Hyaline); RBC/HPF 0-3 HPF (0-3); Squamous Epithelial None Seen HPF (0-3); WBC/HPF 0-3 HPF (0-3)
--- NOTE | 2018-10-17 18:42 | HP ---
PRIMARY CARE PROVIDER: Dr. Aleman. CHIEF COMPLAINT: Diarrhea. HISTORY OF PRESENT ILLNESS: This is a 53-year-old male with recent diagnosis of gallbladder/liver cance, undergoing chemotherapy initiated on October 05, [address] [facility], who presents to the emergency room with a complaint of diarrhea starting 2 days ago. The patient reports 9 to 12 episodes per day, nonbloody stool, waking up at night several times at to have a bowel movement. He has baseline abdominal pain which led to the diagnosis of gallbladder cancer last month, managed with morphine and oxycodone that is worse over the past few days. The patient denies any prior history. Denies any sick contacts. Denies anything new or different as far as his routine goes with the exception of chemotherapy. He has nausea but no vomiting. The patient started chemotherapy on October 05 with cisplatin, Abraxane, and Gemzar, treated with IV fluids, potassium, Aloxi, Decadron and mannitol during the same infusion day. The first round was on October 05, the second round was on October 12 and at that time he had Neulasta infused for 27 hours. He reports overall no problems until the onset of these symptoms two days later. In the emergency room, the patient found to be neutropenic, febrile with a temperature up to 100.9 and hospitalist called for admission. He received morphine 4 mg IV, Zosyn 3.375 g, normal saline 2 L, 1 g of Tylenol, and 1 g of IV vancomycin. ALLERGIES: NONE. CURRENT MEDICATIONS: Reconciled with the list provided by the patient's . 1. Morphine 30 mg extended release b.i.d. 2. Oxycodone 15 mg every 4 hours. 3. Propranolol 20 mg t.i.d. 4. Wellbutrin extended release XL 300 mg daily. 5. Effexor ER 37.5 mg b.i.d. 6. Prochlorperazine 5 mg two tablets every 4 to 6 hours as needed. 7. Zofran 8 mg t.i.d. as needed. 8. Chemotherapy medications as noted above. PAST MEDICAL HISTORY: 1. Hypertension. 2. Stage 4 gallbladder/ liver cancer, undergoing chemotherapy. PAST SURGICAL HISTORY: 1. Back surgery x4. 2. Cardiac ablation. 3. Hernia. 4. Hemorrhoids. 5. Port placement. SOCIAL HISTORY: The patient is , chews tobacco. His , Sondra is his surrogate decision maker and he is a full code. Her phone #[phone]. FAMILY HISTORY: Significant for heart attacks. REVIEW OF SYSTEMS: Positive for fevers and chills today that started at the hospital, weakness, dizziness, difficulty with taking a deep breath secondary to worsening abdominal pain. Negative for any urinary changes. All remaining review of systems are reviewed and negative. PHYSICAL EXAMINATION: VITAL SIGNS: Blood pressure 136/80, pulse 98, respirations 17, temperature 100.4, and saturation 97% on room air. GENERAL: The patient is resting. He answers questions appropriately. He is not in apparent distress. HEENT: Pupils are equal and round. No scleral icterus. Oral mucosa is pink and slightly dry. NECK: Supple, nontender. LYMPHATICS: No palpable cervical or supraclavicular lymphadenopathy. LUNGS: Clear to auscultation bilateral. No audible wheezing, rhonchi, or rales. HEART: Normal S1 and S2. Regular rate and rhythm. No audible murmurs. ABDOMEN: Soft. Tenderness to palpation throughout. EXTREMITIES: No clubbing, cyanosis, or edema. SKIN: No visible rashes. NEUROLOGIC: No focal deficits noted. PSYCH: The patient appears tired. Alert and oriented x4. [place] FINDINGS AND TEST RESULTS: Urinalysis shows trace blood with 4 to 6 red blood cells, otherwise negative. Chemistry; 130, 4.5, 97, 27, 14, 0.89, 104. Lactic acid 1.4. LFTs: T-bilirubin 0.9, AST 44, ALT 46, alkaline phosphatase 187, total protein 7.3, albumin 4.1. Lipase 40. CBC; 0.4, 12.5, 36.7, and 47. Chest x-ray personally reviewed, no acute process by my review, await radiologist's report. IMPRESSION: 1. Neutropenic fever. The patient is undergoing chemotherapy with associated diarrhea. 2. Pancytopenia likely secondary to chemotherapy. 3. Stage 4 gallbladder/liver cancer. 4. Hyponatremia, mild. 5. Chronic pain secondary to above. 6. Hypertension. 7. Mood disorder. 8. Tobacco abuse. PLAN: 1. Inpatient admission. Anticipate the patient will be here at least 48 hours. 2. Cover with vancomycin as the patient does have a port in place, and cefepime for broad spectrum abx while awaiting blood and urine culture results. 3. We will obtain stool studies to include C. diff, Giardia, stool culture and lactoferrin to evaluate diarrhea for bacterial infection. 4. Oncology consultation for neutropenic fever and further recommendations. 5. Continue IV fluid hydration and monitoring electrolytes including hyponatremia, which is mild. 6. Continue his home medications to include pain medications. We will continue the long-acting pain medication for baseline pain management and use p.r.n. IV pain medications. When pain is back to baseline, resume the oral oxycodone as needed. 7. Continuing medications for mood. 8. Continuing his home propranolol with hold parameters to avoid hypotension. 9. Manage any nausea. 10. Nicotine replacement if desired. 11. DVT prophylaxis due to the thrombocytopenia - SCDs only. 12. GI prophylaxis not indicated. The patient will be written for a diet. 13. Code status is full. Surrogate decision maker is the patient's , Sondra as noted above. 14. The patient is at high risk given age, comorbidities, and current presentation. 15. Reviewed the plan of care with the patient and his . No questions or further needs at end of evaluation. Job ID: [id number] MTDD
[2018-10-17] MEDS: Morphine 4 MG/ML VIAL SLOW IVP PRN (19:58)
[2018-10-17] MEDS: Sodium Chloride 0.9% 1,000 ML IV SCH (19:59)
[2018-10-17] MEDS: Propranolol HCl 20 MG TAB PO SCH (20:08)
[2018-10-17] MEDS: Acetaminophen 325 MG TAB PO PRN (21:15)
[2018-10-17] MEDS: Morphine ER 30 MG TAB PO SCH (21:15)
[2018-10-17] MEDS: Venlafaxine XR 37.5 MG CAP PO SCH (21:15)
[2018-10-17] MEDS: Cefepime 2 GM in Sodium Chloride 0.9% 100 ML IVPB SCH (21:16)
[2018-10-18] MEDS ORDERED: Vancomycin HCl 1 GM in Premix Bag 1 BAG IVPB SCH (03:00)
[2018-10-18] MEDS: Morphine 4 MG/ML VIAL SLOW IVP PRN ×5 (04:15→20:30)
[2018-10-18] MEDS: Ondansetron PF 4 MG/2 ML Vial IVP PRN ×3 (04:21→20:41)
[2018-10-18 04:44] LABS: Hemoglobin 11.9 g/dL (14.0-18.0); Mean Corpuscular Hemoglobin 31.8 pg (27.0-31.0); Mean Corpuscular Volume 93.5 fL (78.0-98.0); Mean Platelet Volume 7.5 fL (7.4-10.4); Platelet Count 40 thou/uL (130-400); RBC Distribution Width 11.2 % (11.5-14.5); Red Blood Cell (RBC) Count 3.72 mill/uL (4.70-6.10); White Blood Cell (WBC) Count 0.4 thou/uL (4.8-10.8)
[2018-10-18 04:58] LABS: Platelet Morphology Comment Appears Decreased; RBC Morphology Normal
[2018-10-18 04:59] LABS: Anion Gap 8 mmol/L (10-20); BUN (Urea Nitrogen) 11 mg/dL (8.4-25.7); Calc. Creatinine Clearance 173 mL/min (70-130); Calcium 8.4 mg/dL (7.8-10.44); Carbon Dioxide 26 mmol/L (22-29); Chloride 102 mmol/L (98-107); Estimated GFR-MDRD Greater than 90; Glucose 118 mg/dL (70-105); Sodium 132 mmol/L (136-145)
[2018-10-18] MEDS: Cefepime 2 GM in Sodium Chloride 0.9% 100 ML IVPB SCH ×3 (06:26→22:17)
[2018-10-18] MEDS: Sodium Chloride 0.9% 1,000 ML IV SCH ×3 (06:29→22:21)
[2018-10-18] MEDS: Bupropion 150 MG XL TAB PO SCH (08:18)
[2018-10-18] MEDS: Propranolol HCl 20 MG TAB PO SCH ×3 (08:19→20:32)
[2018-10-18] MEDS: Venlafaxine XR 37.5 MG CAP PO SCH ×2 (08:19→20:33)
[2018-10-18] MEDS: Morphine ER 30 MG TAB PO SCH ×2 (08:57→20:32)
[2018-10-18] MEDS ORDERED: Prevnar 13-Val Conj/PF 0.5 ML SYRINGE IM ONE (09:00)
--- NOTE | 2018-10-18 11:58 | CON ---
DATE OF CONSULTATION: REASON FOR CONSULTATION: Biliary cancer. HISTORY OF PRESENT ILLNESS: A 53-year-old male with history of stage ALEKSANDAR gallbladder cancer, currently on chemotherapy, presenting to the hospital with diarrhea and fever. The patient is currently receiving Abraxane, cisplatin, and Gemzar chemotherapy, and last dose was received on Friday, October 12, 2018. Since chemotherapy, the patient has started complaining of diffuse watery nonbloody diarrhea starting approximately 2 days prior to presentation to the ER with 9 to 12 episodes per day, waking up multiple times at night to go. He spiked a fever in the ER and was admitted with a white blood cell count of 0.4. The patient states his diarrhea has not improved since admission and went to the bathroom 5 times overnight. He has not had a fever since admission to the hospital. He still has his chronic abdominal pain and mild nausea, which he says are controlled with medications. He denies any vomiting. He has no shortness of breath, cough, or other symptoms. In the ER, the patient was febrile with a temperature up to 100.9, received morphine, Zosyn, and vancomycin. REVIEW OF SYSTEMS: Ten-point review of systems is negative except as per HPI. ALLERGIES: NONE. CURRENT MEDICATIONS: Reviewed. PAST MEDICAL HISTORY: Biliary cancer and hypertension. PAST SURGICAL HISTORY: Back surgery, cardiac ablation, hernia, hemorrhoids, and port placement. SOCIAL HISTORY: The patient is . Chews tobacco. FAMILY HISTORY: Heart attacks. PHYSICAL EXAMINATION: VITAL SIGNS: Temperature 98.5, pulse 93, respirations 16, saturating 97% on room air, blood pressure 122/73. GENERAL APPEARANCE: The patient is asleep when I entered the room and wakes up on hearing his name and is in no acute distress. HEENT: No scleral icterus noted. NECK: Supple. LYMPHATICS: No palpable lymphadenopathy. LUNGS: Clear to auscultation bilaterally. CARDIAC: S1 and S2. Regular rate and rhythm. ABDOMEN: Tender to palpation. EXTREMITIES: No edema. SKIN: No rashes. NEUROLOGIC: Nonfocal. PSYCHIATRIC: Awake, alert, and oriented x3. LABORATORY DATA: White blood cells 0.4, hemoglobin 11.9, platelets 40. Sodium 132, potassium 4.0, BUN 11, creatinine 0.82, calcium 8.4. AST 44, ALT 146, alkaline phosphatase 187, total bilirubin 0.9. IMAGING DATA: Chest x-ray showed no acute findings. MICROBIOLOGY: Clostridium difficile, negative. Blood cultures show no growth to date. ASSESSMENT AND PLAN: A 53-year-old male with stage IV gallbladder cancer, currently on chemotherapy with cisplatin, Gemzar, and Abraxane, presenting to the hospital with fever, diffuse watery diarrhea, and neutropenia. Clostridium difficile is negative for cause of his diarrhea; and stool cultures, Giardia and lactoferrin are currently pending. At this time, we would recommend continuing broad-spectrum antibiotics and continue holding off on any antidiarrheals until stool testing is complete. If all stool testing is negative, then may start with Imodium and Lomotil. The patient's white blood cells are 0.4, and he is 6 days past his last chemotherapy. The robyn is typically 7 to 10 days, and the patient did receive Neulasta, so I do expect his white blood cell count to begin to rise in the next couple of days. We will continue to follow this patient with you. Thank you for this consult. Job ID: [id number]
[2018-10-18] MEDS: metroNIDAZOLE 500 MG in Premix Bag 1 BAG IVPB SCH ×3 (12:12→23:59)
--- NOTE | 2018-10-18 12:57 | PRG ---
DATE OF SERVICE: 10/18/2018 SUBJECTIVE: The patient is seen and examined at the bedside. He feels bad. He does not have much vomiting, but has diarrhea and abdominal cramping all over his abdomen. Had some fever and chills at home. OBJECTIVE: VITAL SIGNS: Blood pressure is 120/70, pulse is 74, temperature is 98.7, respiratory rate is 18, and O2 saturation is 97% on room air. HEENT: His head is atraumatic and normocephalic. Eyes are PERRLA. Sclerae nonicteric. Conjunctivae palish. Oral mucosa is slightly dry. NECK: Supple. LUNGS: Clear. HEART: S1, S2 normal. No S3. No S4. No any murmur. ABDOMEN: Nondistended, tender to palpation. No guarding. No masses. EXTREMITIES: No clubbing, cyanosis, or edema. NEUROLOGICAL: He is alert and oriented x4. There is no any motor or sensory deficits present. Cranial nerves are intact. LABORATORY DATA: White count of 0.4, hemoglobin 11.9, hematocrit 34.8, platelet count is . Sodium of 132, potassium 4.0, chloride 102, CO2 26, BUN 11, creatinine 0.82, glycemia is ranging from 104-118, calcium 8.4. Microbiology; blood culture showed gram-positive cocci in clusters, 1 of 2 cultures sets positive. Clostridium difficile antigen and toxins negative. Stool negative for Campylobacter, negative for Escherichia coli. Shigatoxin 1 and 2 and elevated fecal lactoferrin level. IMPRESSION: 1. Neutropenic fever. 2. Pancytopenia secondary to chemotherapy. 3. Biliary cancer. 4. Hypertension. 5. Mood disorder. 6. Tobacco abuse. PLAN: The patient is positive for gram positive cocci in clusters in 1/2 blood cultures. He is covered with vancomycin and cefepime. We are going to add metronidazole. We are awaiting for the final report on his stool testing and if everything is negative, we will allow him to have Imodium. The patient was seen by Dr. Cha for oncology evaluation. He recommends to continue current regimen with broad-spectrum antibiotic, IV fluids and pain management p.r.n. Remain in isolation. His sodium is improved. Job ID: [id number]
[2018-10-19] MEDS: Morphine 4 MG/ML VIAL SLOW IVP PRN ×4 (03:24→16:58)
[2018-10-19 04:41] LABS: Vancomycin, Trough 12.8 ug/mL
[2018-10-19] MEDS: Cefepime 2 GM in Sodium Chloride 0.9% 100 ML IVPB SCH ×3 (05:24→22:11)
[2018-10-19] MEDS: metroNIDAZOLE 500 MG in Premix Bag 1 BAG IVPB SCH ×4 (07:27→20:13)
[2018-10-19] MEDS: Propranolol HCl 20 MG TAB PO SCH ×3 (08:49→20:09)
[2018-10-19] MEDS: Bupropion 150 MG XL TAB PO SCH (08:50)
[2018-10-19] MEDS: Morphine ER 30 MG TAB PO SCH ×2 (08:50→20:13)
[2018-10-19] MEDS: Venlafaxine XR 37.5 MG CAP PO SCH ×2 (08:51→20:09)
[2018-10-19 10:23] LABS: Hemoglobin 10.3 g/dL (14.0-18.0); Mean Corpuscular HGB CONC 34.7 g/dL (32.0-36.0); Mean Corpuscular Volume 92.4 fL (78.0-98.0); Platelet Count 26 thou/uL (130-400); RBC Distribution Width 11.2 % (11.5-14.5); White Blood Cell (WBC) Count 0.3 thou/uL (4.8-10.8)
[2018-10-19 10:34] LABS: ALT (SGPT) 19 U/L (8-55); AST (SGOT) 13 U/L (5-34); Albumin 3.1 g/dL (3.5-5.0); Alkaline Phosphatase 93 U/L (40-150); Anion Gap 9 mmol/L (10-20); BUN (Urea Nitrogen) 10 mg/dL (8.4-25.7); Bilirubin, Total 0.5 mg/dL (0.2-1.2); Calc. Creatinine Clearance 174 mL/min (70-130); Calcium 7.9 mg/dL (7.8-10.44); Carbon Dioxide 24 mmol/L (22-29); Chloride 102 mmol/L (98-107); Estimated GFR-MDRD Greater than 90; Globulin 2.5 g/dL (2.4-3.5); Glucose 104 mg/dL (70-105); Potassium 3.8 mmol/L (3.5-5.1); Protein, Total 5.6 g/dL (6.0-8.3); Sodium 131 mmol/L (136-145)
[2018-10-19 10:40] LABS: Platelet Morphology Comment Appears Decreased; RBC Morphology Normal
[2018-10-19] MEDS: Ondansetron PF 4 MG/2 ML Vial IVP PRN ×2 (12:13→20:14)
--- NOTE | 2018-10-19 13:25 | PRG ---
DATE OF SERVICE: 10/19/2018 SUBJECTIVE: The patient is seen and examined at the bedside. He developed a lot of cramping in his abdomen last night after he ate some food and he could not sleep much. He did not get much relief from morphine. His diarrhea slowed down. He had just two watery bowel movements since last night. No nausea. No vomiting. OBJECTIVE: VITAL SIGNS: Blood pressure is 132/72, pulse is 80, temperature is 99.1 that is maximal temperature, respiratory rate is 20, O2 saturation is 100% on room air. HEENT: Head is atraumatic and normocephalic. Eyes are PERRLA. Sclerae are nonicteric. Oral mucosa is moist. NECK: Supple. LUNGS: Clear. HEART: S1, S2 normal. No S3. No S4. ABDOMEN: Soft, nondistended. Mildly tender on deeper palpation. No guarding. No masses. EXTREMITIES: No clubbing, cyanosis, or edema. NEUROLOGICAL: He is alert and oriented x4. There are no any motor or sensory deficits present. Cranial nerves are intact. LABORATORY DATA: Labs showed white count of 0.3, hemoglobin 10.3, hematocrit 29.6, platelet count is 26,000. Chemistry showed sodium of 131, potassium 3.8, chloride 102, CO2 of 24, BUN 10, creatinine 0.82, glucose 104, calcium 7.9, total protein 5.6, albumin 3.1. Microbiology 1/2 cultures growing coagulase negative Staphylococcus, which is most likely a contaminant. Urine culture is negative at 24 hours. Blood cultures as mentioned above. Clostridium difficile toxins and antigen on his stool are negative. Lactoferrin is positive. Campylobacter is negative. Shiga toxin is negative. Stool culture is just a regular GI leonardo. E coli 0157 negative. IMPRESSION: 1. Neutropenic fever. 2. Pancytopenia secondary to chemotherapy. We should be able to see improvement of his cell counts in the next 24 to 48 hours. 3. Biliary cancer. 4. Hypertension. 5. Inflammatory process in his abdomen, most likely related to chemotherapy. 6. Mood disorder. 7. Tobacco abuse. PLAN: Continue his vancomycin and cefepime. Continue metronidazole. Switch him from morphine to fentanyl IV push 25 mcg every 2 hours p.r.n. as needed. Continue IV fluids. Continue isolation. Observe for any signs of bleeding since his platelets down to 26,000. Job ID: [id number]
[2018-10-19] MEDS: Fentanyl 100 MCG/2 ML VIAL SLOW IVP PRN ×3 (13:40→22:11)
[2018-10-19] MEDS: Sodium Chloride 0.9% 1,000 ML IV SCH (16:13)
[2018-10-19] MEDS: Acetaminophen 325 MG TAB PO PRN ×2 (16:57→21:47)
[2018-10-19] MEDS ORDERED: Ibuprofen 600 MG TAB PO PRN (19:55)
[2018-10-20] MEDS: metroNIDAZOLE 500 MG in Premix Bag 1 BAG IVPB SCH ×4 (02:31→23:46)
[2018-10-20] MEDS: Morphine 4 MG/ML VIAL SLOW IVP PRN ×4 (03:49→17:10)
[2018-10-20 04:21] LABS: Hemoglobin 9.6 g/dL (14.0-18.0); Mean Corpuscular Hemoglobin 32.9 pg (27.0-31.0); Mean Corpuscular Volume 91.4 fL (78.0-98.0); Platelet Count 15 thou/uL (130-400); Platelet Morphology Comment Appears Decreased; RBC Morphology Normal; Red Blood Cell (RBC) Count 2.92 mill/uL (4.70-6.10); White Blood Cell (WBC) Count 0.4 thou/uL (4.8-10.8)
[2018-10-20] MEDS: Fentanyl 100 MCG/2 ML VIAL SLOW IVP PRN ×6 (04:37→23:44)
[2018-10-20 04:41] LABS: Anion Gap 10 mmol/L (10-20); BUN (Urea Nitrogen) 7 mg/dL (8.4-25.7); Calc. Creatinine Clearance 185 mL/min (70-130); Calcium 7.7 mg/dL (7.8-10.44); Carbon Dioxide 25 mmol/L (22-29); Chloride 103 mmol/L (98-107); Estimated GFR-MDRD Greater than 90; Glucose 107 mg/dL (70-105); Potassium 3.1 mmol/L (3.5-5.1); Sodium 135 mmol/L (136-145)
[2018-10-20] MEDS: Cefepime 2 GM in Sodium Chloride 0.9% 100 ML IVPB SCH ×3 (05:07→22:30)
[2018-10-20] MEDS: Sodium Chloride 0.9% 1,000 ML IV SCH (05:44)
[2018-10-20] MEDS: Venlafaxine XR 37.5 MG CAP PO SCH ×2 (08:23→21:02)
[2018-10-20] MEDS: Bupropion 150 MG XL TAB PO SCH (08:28)
[2018-10-20] MEDS: Propranolol HCl 20 MG TAB PO SCH ×3 (08:29→21:02)
[2018-10-20] MEDS: Morphine ER 30 MG TAB PO SCH ×2 (08:41→21:01)
--- NOTE | 2018-10-20 11:16 | PRG ---
DATE OF SERVICE: 10/20/2018 SUBJECTIVE: The patient is seen and examined at bedside. He is still feeling weak and tired. His pain of the abdomen improved. OBJECTIVE: VITAL SIGNS: Blood pressure is 140/71, pulse is 84, respiratory rate is 18, O2 saturation is 100% on room air. His maximal temperature was 101.8 yesterday at 1600. He had one watery bowel movement. HEENT: His head is atraumatic and normocephalic. Eyes are PERRLA. Sclerae are nonicteric. Oral mucosa is moist. NECK: Supple. LUNGS: Clear. HEART: S1, S2 normal. ABDOMEN: Nondistended, still quite tender to palpation. Bowel sounds sluggish. EXTREMITIES: No clubbing, cyanosis, or edema. NEUROLOGICAL: He is alert and oriented x4. There is no any motor or sensory deficits present. Cranial nerves are intact. LABORATORY DATA: Labs showed white count of 0.4, hemoglobin 9.6, hematocrit 26.7, platelet count is 15,000. His sodium of 135, potassium 3.1, chloride 103, CO2 of 25, BUN 7, creatinine 0.77, glucose 107, calcium 7.7, and magnesium 1.3. Microbiology, no new findings. IMPRESSION: 1. Neutropenic fever. 2. Pancytopenia secondary to chemotherapy. 3. Biliary cancer. 4. Hypertension. 5. Hypokalemia. 6. Inflammatory process in his abdomen, most likely related to chemotherapy. 7. Mood disorder. 8. Tobacco abuse. PLAN: Continue his vancomycin, cefepime, and metronidazole. Continue fentanyl p.r.n. for pain control. Continue isolation. Start banana bag at 100 mL/h one a day. The patient's platelets down to below 20,000, but he does not show any signs of bleeding. Continue observation and transfuse him with platelets if he starts bleeding. Also, we are going to replace his potassium and magnesium which were low at this morning lab work. Job ID: [id number]
[2018-10-20] MEDS: Multivitamins, Adult 10 ML, Folic Acid 1 MG, Thiamine HCl 100 MG in Dextrose 5 %-0.45 %... IV SCH (11:23)
[2018-10-20] MEDS: Ondansetron PF 4 MG/2 ML Vial IVP PRN ×2 (11:24→18:54)
[2018-10-20] MEDS: Potassium Chloride 20 MEQ TAB PO SCH ×2 (11:24→17:09)
[2018-10-20] MEDS: Magnesium 2 GM/50 ML 2 GM in Premix Bag 1 BAG IVPB SCH ×2 (12:04→18:05)
[2018-10-20 17:12] LABS: Vancomycin, Trough 10.2 ug/mL
[2018-10-20] MEDS: Vancomycin HCl 1.75 GM in Sodium Chloride 0.9% 500 ML IVPB SCH (18:58)
[2018-10-21] MEDS: Loperamide HCl 2 MG CAP PO PRN ×3 (00:15→19:57)
[2018-10-21] MEDS: Zolpidem Tartrate 5 MG TAB PO PRN ×2 (00:16→22:48)
[2018-10-21] MEDS: Morphine 4 MG/ML VIAL SLOW IVP PRN ×5 (00:18→22:50)
[2018-10-21] MEDS: Sodium Chloride 0.9% 1,000 ML IV SCH ×3 (01:50→18:42)
[2018-10-21] MEDS: metroNIDAZOLE 500 MG in Premix Bag 1 BAG IVPB SCH ×4 (02:15→20:30)
[2018-10-21] MEDS: Vancomycin HCl 1.75 GM in Sodium Chloride 0.9% 500 ML IVPB SCH ×3 (03:32→18:38)
[2018-10-21] MEDS: Fentanyl 100 MCG/2 ML VIAL SLOW IVP PRN ×6 (03:40→22:03)
[2018-10-21] MEDS: Cefepime 2 GM in Sodium Chloride 0.9% 100 ML IVPB SCH ×3 (05:20→22:25)
[2018-10-21 06:12] LABS: Anion Gap 12 mmol/L (10-20); BUN (Urea Nitrogen) 6 mg/dL (8.4-25.7); Calc. Creatinine Clearance 207 mL/min (70-130); Calcium 7.8 mg/dL (7.8-10.44); Carbon Dioxide 27 mmol/L (22-29); Chloride 97 mmol/L (98-107); Estimated GFR-MDRD Greater than 90; Glucose 101 mg/dL (70-105); Sodium 133 mmol/L (136-145)
[2018-10-21 06:16] LABS: Potassium 2.7 mmol/L (3.5-5.1)
[2018-10-21 06:44] LABS: Hemoglobin 9.9 g/dL (14.0-18.0); Mean Corpuscular HGB CONC 34.8 g/dL (32.0-36.0); Mean Corpuscular Volume 89.2 fL (78.0-98.0); Mean Platelet Volume 8.9 fL (7.4-10.4); Platelet Count 16 thou/uL (130-400); RBC Distribution Width 11.1 % (11.5-14.5); White Blood Cell (WBC) Count 1.8 thou/uL (4.8-10.8)
[2018-10-21 06:51] LABS: ALT (SGPT) 12 U/L (8-55); AST (SGOT) 13 U/L (5-34); Alkaline Phosphatase 80 U/L (40-150); Anion Gap 9 mmol/L (10-20); BUN (Urea Nitrogen) 6 mg/dL (8.4-25.7); Bilirubin, Total 0.6 mg/dL (0.2-1.2); Calc. Creatinine Clearance 198 mL/min (70-130); Calcium 7.8 mg/dL (7.8-10.44); Carbon Dioxide 28 mmol/L (22-29); Chloride 98 mmol/L (98-107); Estimated GFR-MDRD Greater than 90; Globulin 2.6 g/dL (2.4-3.5); Glucose 104 mg/dL (70-105); Protein, Total 5.6 g/dL (6.0-8.3); Sodium 132 mmol/L (136-145)
[2018-10-21 06:53] LABS: Potassium 2.7 mmol/L (3.5-5.1)
[2018-10-21 07:06] LABS: Band 4 % (5-11); Hypochromia SLIGHT = 6-15 cells (100X) (0-5/hpf); Lymphocytes 28 % (21-51); MDiff Complete? YES; Metamyelocyte 4 % (0-0); Monocytes 40 % (0-10); Neutrophil 24 % (42-75); Nucleated RBC 2 % (0); Platelet Morphology Comment Appears Decreased
[2018-10-21] MEDS: Bupropion 150 MG XL TAB PO SCH (08:32)
[2018-10-21] MEDS: Morphine ER 30 MG TAB PO SCH ×2 (08:33→22:22)
[2018-10-21] MEDS: Venlafaxine XR 37.5 MG CAP PO SCH ×2 (08:34→22:22)
[2018-10-21] MEDS: Propranolol HCl 20 MG TAB PO SCH ×3 (08:35→22:22)
[2018-10-21] MEDS: Ondansetron PF 4 MG/2 ML Vial IVP PRN (08:38)
[2018-10-21] MEDS: Potassium Chloride 20 MEQ TAB PO SCH ×2 (09:46→13:14)
[2018-10-21] MEDS: Saccharomyces boulardii 250 MG CAP PO SCH (09:46)
--- NOTE | 2018-10-21 11:54 | ULT ---
BILATERAL LOWER EXTREMITY VENOUS DUPLEX EXAM: History: Bilateral leg pain and swelling. FINDINGS: Real-time color doppler evaluation of the right and left lower extremities were performed from groin to calf. This includes evaluation of the common femoral, superficial, profunda femoral, saphenous, po pliteal and posterior tibial veins. This shows patent deep venous systems bilaterally. There is isaac l compressibility and augmentation. There is no evidence of DVT. IMPRESSION: No evidence of DVT of either lower extremity. POS: TPC
[2018-10-21] MEDS: Multivitamins, Adult 10 ML, Folic Acid 1 MG, Thiamine HCl 100 MG in Dextrose 5 %-0.45 %... IV SCH (13:10)
--- NOTE | 2018-10-21 14:27 | PDOC.PN ---
- Subjective Encounter Start Date: 10/21/18 Encounter Start Time: 14:23 Subjective: feels better. still w some loose stools - Objective Resuscitation Status - Order Detail: 10/17/18 17:32 Resuscitation Status Routine Resuscitation Status: FULL: Full Resuscitation MAR Reviewed: Yes Vital Signs & Weight: Vital Signs (12 hours) Temp Pulse Resp BP Pulse Ox 10/21/18 12:00 97.5 F L 66 18 128/70 100 10/21/18 08:00 99.2 F 67 18 128/72 92 L 10/21/18 04:00 98.7 F Weight Admit Weight 265 lb Weight 263 lb 0.889 oz I&O: 10/20/18 10/21/18 10/22/18 06:59 06:59 06:59 Intake Total 6284 3950 Output Total 450 Balance 5834 3950 Result Diagrams: 10/21/18 06:21 10/21/18 06:21 Additional Labs: Microbiology 10/20/18 10:30 Stool Rapid Parasite Screen - Final 10/17/18 18:13 Urine voided Urine Culture - Final NO GROWTH AT 48 HOURS 10/17/18 15:40 Venous blood - Left Hand Blood Culture - Final Coagulase Neg Staphylococcus 10/17/18 13:50 Stool - Pending C. difficile GDH Antigen & Toxins - Final 10/17/18 00:46 Stool Stool Lactoferrin - Final 10/17/18 00:46 Stool Shiga Toxin Test - Final 10/17/18 00:46 Stool Stool Culture - Final 10/17/18 00:46 Stool Escherichia coli 0157 Culture - Final 10/17/18 15:36 Venous blood - Right Hand Blood Culture - Preliminary NO GROWTH AT 48 HOURS Laboratory Tests 09/10/18 10/17/18 10/20/18 03:37 12:24 03:59 Lactic Acid 1.5 1.4 Magnesium 1.3 L Microbiology 10/21/18 09:43 Nasal swab Influenza Types A,B Direct EIA - Final Radiology Reviewed by me: Yes (Doppler legs-no DVT b/l) Phys Exam - Physical Examination Constitutional: NAD HEENT: PERRLA, moist MMs, sclera anicteric, oral pharynx no lesions Neck: no nodes, no JVD, supple, full ROM Respiratory: no wheezing, no rales, no rhonchi, clear to auscultation bilateral Cardiovascular: RRR, no significant murmur, no rub Gastrointestinal: soft, non-tender, no distention, positive bowel sounds Musculoskeletal: no edema, pulses present Neurological: non-focal, normal sensation, moves all 4 limbs Psychiatric: normal affect, A&O x 3 Skin: no rash Dx/Plan (1) Neutropenia with fever Code(s): D70.9 - NEUTROPENIA, UNSPECIFIED; R50.81 - FEVER PRESENTING WITH CONDITIONS CLASSIFIED ELSEWHERE Status: Acute Comment: Infetious work up negative.Suspect fever due to carcinoma and/or ChemoRx (2) Pancytopenia due to chemotherapy Code(s): D61.810 - ANTINEOPLASTIC CHEMOTHERAPY INDUCED PANCYTOPENIA Status: Acute (3) Hypokalemia Code(s): E87.6 - HYPOKALEMIA Status: Acute (4) Diarrhea Code(s): R19.7 - DIARRHEA, UNSPECIFIED Status: Acute (5) Biliary tract cancer Code(s): C24.9 - MALIGNANT NEOPLASM OF BILIARY TRACT, UNSPECIFIED Status: Chronic Comment: on chemoRx (6) H/O cardiac radiofrequency ablation Code(s): Z98.890 - OTHER SPECIFIED POSTPROCEDURAL STATES Status: Chronic (7) HTN (hypertension) Code(s): I10 - ESSENTIAL (PRIMARY) HYPERTENSION Status: Chronic - Plan DVT proph w/SCDs doubt infection.may stop ABx.will get ID recs -: all Cx negarive so far. Influenza test negative,DVT Negative -: add florastor -: monitor CBC. WBC getting better.platelets stable -: HD stable. monitor and cont suportive care.replace Potassium * . Review of Systems - Review of Systems Constitutional: weakness, malaise. negative: fever, chills, sweats, other ENT: negative: Ear Pain, Ear Discharge, Nose Pain, Nose Discharge, Nose Congestion, Mouth Pain, Mouth Swelling, Throat Pain, Throat Swelling, Other Respiratory: negative: Cough, Dry, Shortness of Breath, Hemoptysis, SOB with Excertion, Pleuritic Pain, Sputum, Wheezing Cardiovascular: negative: chest pain, palpitations, orthopnea, paroxysmal nocturnal dyspnea, edema, light headedness, other Gastrointestinal: negative: Nausea, Vomiting, Abdominal Pain, Diarrhea, Constipation, Melena, Hematochezia, Other Genitourinary: negative: Dysuria, Frequency, Incontinence, Hematuria, Retention , Other Musculoskeletal: negative: Neck Pain, Shoulder Pain, Arm Pain, Back Pain, Hand Pain, Leg Pain, Foot Pain, Other Neurological: negative: Weakness, Numbness, Incoordination, Change in Speech, Confusion, Seizures, Other - Medications/Allergies Allergies/Adverse Reactions: Allergies Allergy/AdvReac Type Severity Reaction Status Date / Time No Known Allergies Allergy Verified 09/10/18 05:26 Medications: Current Medications Acetaminophen (Tylenol) 650 mg PO Q4H PRN PRN Reason: Fever > 101 Last Admin: 10/19/18 21:47 Dose: 650 mg Bupropion HCl (Wellbutrin Xl) 300 mg PO DAILY [facility] Last Admin: 10/21/18 08:32 Dose: 300 mg Diphenoxylate HCl/Atropine (Lomotil) 1 tab PO Q6H PRN PRN Reason: Diarrhea/Loose Stools Fentanyl (Sublimaze) 25 mcg SLOW IVP Q2H PRN PRN Reason: Pain UNRELIEVED BY MORPHINE Last Admin: 10/21/18 11:58 Dose: 25 mcg Sodium Chloride (Normal Saline 0.9%) 1,000 mls @ 100 mls/hr IV .Q10H [facility] Last Admin: 10/21/18 03:33 Dose: 1,000 mls Cefepime HCl 2 gm/ Sodium (Chloride) 100 mls @ 200 mls/hr IVPB Q8HR [facility] Last Admin: 10/21/18 14:22 Dose: 100 mls Metronidazole 500 mg/ Device 100 mls @ 100 mls/hr IVPB Q6H [facility] Last Admin: 10/21/18 08:30 Dose: 100 mls Multivitamins 10 ml/ Folic Acid 1 mg/ Thiamine HCl 100 mg / Dextrose/Sodium Chloride 1,011.2 mls @ 100 mls/hr IV Q24HR [facility] Last Admin: 10/21/18 13:10 Dose: 1,011.2 mls Vancomycin HCl 1.75 gm/ Sodium (Chloride) 500 mls @ 250 mls/hr IVPB 0200,1000, 1800 [facility] Last Admin: 10/21/18 09:50 Dose: 500 mls Loperamide HCl (Imodium) 2 mg PO PRN PRN PRN Reason: Diarrhea/Loose Stools Miscellaneous Medication (Pharmacy To Dose) 0 each IVPB PRN PRN PRN Reason: PHARM TO DOSE VANC Morphine Sulfate (Morphine) 2 mg SLOW IVP Q4H PRN PRN Reason: Moderate Pain (4-6) Last Admin: 10/21/18 05:26 Dose: 2 mg Morphine Sulfate (Morphine) 4 mg SLOW IVP Q4H PRN PRN Reason: Severe Pain (7-10) Last Admin: 10/21/18 13:15 Dose: 4 mg Morphine Sulfate (Ms Contin) 30 mg PO Q12HR [facility] Last Admin: 10/21/18 08:33 Dose: 30 mg Ondansetron HCl (Zofran) 8 mg IVP Q8H PRN PRN Reason: Nausea/Vomiting Last Admin: 10/21/18 08:38 Dose: 8 mg Pantoprazole Sodium (Protonix) 40 mg PO DAILY [facility] Last Admin: 10/21/18 08:33 Dose: 40 mg Propranolol HCl (Inderal) 20 mg PO TID [facility] Last Admin: 10/21/18 08:35 Dose: 20 mg Saccharomyces Boulardii (Florastor) 250 mg PO DAILY [facility] Last Admin: 10/21/18 09:46 Dose: 250 mg Sodium Chloride (Flush - Normal Saline) 10 ml IVF Q12HR [facility] Last Admin: 10/21/18 08:35 Dose: 10 ml Sodium Chloride (Flush - Normal Saline) 10 ml IVF PRN PRN PRN Reason: Saline Flush Last Admin: 10/19/18 03:26 Dose: 10 ml Venlafaxine HCl (Effexor Xr) 37.5 mg PO BID [facility] Last Admin: 10/21/18 08:34 Dose: 37.5 mg Zolpidem Tartrate (Ambien) 5 mg PO HSPRN PRN PRN Reason: Insomnia Last Admin: 10/21/18 00:16 Dose: 5 mg
[2018-10-21] MEDS: Diphenoxylate HCl/Atropine Tablet PO PRN ×2 (15:40→22:49)
[2018-10-21 18:26] LABS: Vancomycin, Trough 21.3 ug/mL
--- NOTE | 2018-10-21 19:58 | CON ---
DATE OF CONSULTATION: 10/21/2018 REASON FOR CONSULTATION: Neutropenic fever. HISTORY OF PRESENT ILLNESS: A 53-year-old gentleman, who has a history of hypertension and was recently diagnosed with gallbladder cancer. The patient presented with abdominal pain to [place], had been referred to [facility], but they could never get in touch with the service there and eventually ended up driving to [facility] in [place] and had a full workup with a biopsy-proven diagnosis of gallbladder cancer with involvement of the liver in the left lobe of liver. I believe he is undergoing chemotherapy, which is adjuvant with the intention of eventual surgical intervention for tumor resection and gallbladder resection. He does have gallstones as well. His regimen includes Abraxane, cisplatin, and Gemzar and the last dose was October 12. He was given Neulasta as well. He developed general malaise and diarrhea. He has persistent abdominal pain associated with his malignancy. On arrival, his temperature was a 100.9 and he was admitted and placed on broad-spectrum antimicrobial coverage with cefepime, vancomycin, and Flagyl. Currently still feeling unwell, particularly because of diarrhea and denies headaches or maybe intermittent headaches. No visual symptoms, sore throat, odynophagia, or dysphagia. No cough or sputum production. No chest pain. He does have the abdominal pain, which is mostly in the upper abdomen trending towards the right side. Still having loose stools, but he has not had any stool since last Imodium. No genitourinary symptoms. No joint symptoms or skin disorder. Support is not bothering him. PAST MEDICAL HISTORY: Otherwise hypertension and recently diagnosed gallbladder cancer. PAST SURGICAL HISTORY: Laminectomy, cardiac ablation, herniorrhaphy, hemorrhoids, and port placement, this was done in [place]. SOCIAL HISTORY: . 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 FAMILY HISTORY: Includes coronary artery disease. CURRENT MEDICATIONS: 1. Tylenol. 2. Wellbutrin. 3. Cefepime. 4. Diphenoxylate. 5. Fentanyl. 6. Loperamide. 7. Flagyl. 8. Morphine. 9. Multivitamins. 10. Pantoprazole. 11. Vancomycin. 12. Ambien. PHYSICAL EXAMINATION: VITAL SIGNS: With a T-max 100.6 recently, previously was 101.8. Other vital signs are not remarkable. His O2 saturations are up to 100 now on room air. SKIN: The patient has IV access port in the right subclavian location with no inflammatory changes and he has the ports for the laparoscopy, which do not show any inflammatory changes either. No lymphadenopathy. HEENT: Ocular movements conjugate. Sclerae white. Pupils are equal. Oral cavity normal. NECK: Supple. No jugular vein distention. LUNGS: Symmetric clear breath sounds. HEART: S1 and S2. Regular rate. No S3 or S4. ABDOMEN: Tender in the right upper quadrant. No obvious masses. No bladder distention. : No genital abnormalities. EXTREMITIES: No joint inflammatory activity. Pulses are 1+ in dorsalis pedis. Plantar responses are flexor. No clonus. Cognitive function is perfectly intact. LABORATORY DATA: White cell count was 0.4 and now it is up to 1.8, neutrophil count is up to around between 500 and 600, platelets are at 16,000, and hemoglobin 9.9. He has 4% bands and 24% neutrophils. Chemistry with hypokalemia, sodium a little bit below normal, but other findings are within normal limits except for low albumin at 3.0. Liver profile normal. Urinalysis was fairly unremarkable. Vancomycin trough 10.2. Microbiology, we have coagulase negative Staph in 1/2 sets of blood cultures, which represent contamination of the sample. Most likely. The stool workup has been negative including C. diff and stool Campylobacter antigen and Shiga toxin assay. The lactoferrin was positive. Influenza A and B were negative. There is a chest x-ray on admission with no acute findings. ASSESSMENT: 1. Hypertension. 2. Newly diagnosed gallbladder cancer with stage 4, receiving chemotherapy with neutropenic fever and diarrhea. DISCUSSION: The diarrhea is most likely a complication of the chemotherapy. Likewise, the fever and neutropenia. Now that we see a rapid increase in neutrophil count, we would predict resolution of the fever going forward. If he persists with fever, then we will have to consider adding antifungal therapy. He does not seem to have obstruction of the biliary duct at this point. I foresee a rapid improvement and possible feasibility of discharge in the next 48 hours with oral antimicrobial therapy. This could include quinolone or third generation oral cephalosporin or oral Augmentin. Job ID: [id number] [facility]
[2018-10-22] MEDS: Fentanyl 100 MCG/2 ML VIAL SLOW IVP PRN ×3 (01:30→13:47)
[2018-10-22] MEDS: Vancomycin HCl 1.75 GM in Sodium Chloride 0.9% 500 ML IVPB SCH ×2 (01:34→10:33)
[2018-10-22] MEDS: metroNIDAZOLE 500 MG in Premix Bag 1 BAG IVPB SCH ×2 (03:15→08:52)
[2018-10-22] MEDS: Morphine 4 MG/ML VIAL SLOW IVP PRN ×3 (06:09→15:07)
[2018-10-22] MEDS: Cefepime 2 GM in Sodium Chloride 0.9% 100 ML IVPB SCH (06:29)
[2018-10-22] MEDS: Sodium Chloride 0.9% 1,000 ML IV SCH (06:30)
[2018-10-22 06:58] LABS: Anion Gap 8 mmol/L (10-20); BUN (Urea Nitrogen) 8 mg/dL (8.4-25.7); Calc. Creatinine Clearance 178 mL/min (70-130); Calcium 7.8 mg/dL (7.8-10.44); Carbon Dioxide 28 mmol/L (22-29); Chloride 103 mmol/L (98-107); Estimated GFR-MDRD Greater than 90; Glucose 85 mg/dL (70-105); Sodium 136 mmol/L (136-145)
[2018-10-22 07:04] LABS: Potassium 2.8 mmol/L (3.5-5.1)
[2018-10-22] MEDS: Loperamide HCl 2 MG CAP PO PRN (07:59)
[2018-10-22 08:05] LABS: Band 26 % (5-11); Differential Comment Blast-Like Cell(s); Dohle Bodies SLIGHT; Hemoglobin 9.5 g/dL (14.0-18.0); Lymphocytes 26 % (21-51); MDiff Complete? YES; Mean Corpuscular HGB CONC 35.6 g/dL (32.0-36.0); Mean Corpuscular Hemoglobin 32.6 pg (27.0-31.0); Mean Corpuscular Volume 91.7 fL (78.0-98.0); Mean Platelet Volume 8.5 fL (7.4-10.4); Metamyelocyte 6 % (0-0); Monocytes 9 % (0-10); Myelocyte 3 % (0-0); Neutrophil 23 % (42-75); Nucleated RBC 2 % (0); Platelet Count 33 thou/uL (130-400); Platelet Morphology Comment Appears Decreased; Polychromasia SLIGHT = 2-3 cells (100X) (0-2/hpf); RBC Distribution Width 11.4 % (11.5-14.5); Reactive Lymphocytes 3 % (0-10); Reflex for Review?? YES; Toxic Granulation SLIGHT; White Blood Cell (WBC) Count 7.8 thou/uL (4.8-10.8)
[2018-10-22] MEDS ORDERED: Sodium Chloride 0.9% 1,000 ML IV SCH (08:19)
[2018-10-22] MEDS ORDERED: Potassium Chloride 20 MEQ TAB PO SCH ×2 (08:45→15:15)
[2018-10-22] MEDS: Morphine ER 30 MG TAB PO SCH (08:52)
[2018-10-22] MEDS: Saccharomyces boulardii 250 MG CAP PO SCH (08:53)
[2018-10-22] MEDS: Propranolol HCl 20 MG TAB PO SCH ×2 (08:54→15:49)
[2018-10-22] MEDS: Bupropion 150 MG XL TAB PO SCH (08:54)
[2018-10-22] MEDS: Potassium Chloride 20 MEQ TAB PO SCH ×2 (08:54→12:51)
[2018-10-22] MEDS: Venlafaxine XR 37.5 MG CAP PO SCH (08:54)
[2018-10-22] MEDS: Multivitamins, Adult 10 ML, Folic Acid 1 MG, Thiamine HCl 100 MG in Dextrose 5 %-0.45 %... IV SCH (12:18)
[2018-10-22 12:43] VITALS: BP 125/56; TEMP 98.6
[2018-10-22 14:44] VITALS: BMI 32.0
--- NOTE | 2018-10-22 17:01 | PRG ---
DATE OF SERVICE: 10/22/2018 SUBJECTIVE: Feeling better, although every time he gets the antibiotics, he seems to get diarrhea at least according to his own feeling. No respiratory symptoms. Maybe just the usual abdominal pain, but not more than usual. Voiding without difficulty. OBJECTIVE: VITAL SIGNS: He has been afebrile. BP 107/70, pulse 71, respirations 18, and O2 saturation 97%. GENERAL: Awake, alert, and oriented. Appears in better spirits than yesterday. LUNGS: Clear. HEART: S1 and S2, regular rate. ABDOMEN: Soft with mild tenderness in the right upper quadrant. NEUROLOGIC: Moves all extremities equally. EXTREMITIES: 1+ edema in lower extremities. LABORATORY DATA: White cell count is up to 7.8, hemoglobin 9.5, platelets 33,000, 23 neutrophils, 26 bands, and 6% lymphocytes. Creatinine 0.79. Microbiology, again no significant positive results. ASSESSMENT AND DISCUSSION: Gallbladder cancer, locally invasive in the liver, on chemotherapy with the intention of eventual surgical resection, associated with neutropenia and fever, no positive cultures, but resolution of the fever once neutrophil recovery set in. Consider discharge planning on oral Augmentin. Job ID: [id number]
--- NOTE | 2018-10-23 06:10 | DIS ---
DATE OF ADMISSION: 10/17/2018 DATE OF DISCHARGE: 10/22/2018 PRIMARY CARE PHYSICIAN: Mark Aleman MD. CONDITION: At the time of discharge, stable and improved. DISCHARGE DISPOSITION: Home. DISCHARGE DIAGNOSES: 1. Neutropenia with fever secondary to chemotherapy. Infectious causes ruled out. 2. Pancytopenia due to chemotherapy, improving. 3. Hypokalemia, replaced. 4. Diarrhea due to chemotherapy. 5. Recent diagnosis of biliary tract cancer, on chemotherapy. 6. History of cardiac radiofrequency ablation. 7. Hypertension. DISCHARGE MEDICATIONS: Resume home medications. New medication, Florastor 250 mg daily. Please see admission history and physical dictated by Dr. Tammy Tang on 10/17/2018 for full list of home medications. PROCEDURES DONE IN THE HOSPITAL: 1. Chest x-ray upon presentation, which does not show any evidence of any infiltrates. 2. Lower extremity Doppler ultrasound, which is negative for DVT bilaterally. CONSULTATIONS IN-HOUSE: 1. Infectious Disease, Dr. Ricardo. 2. Oncology, Dr. Cha. HISTORY OF PRESENTING ILLNESS: is a pleasant 53-year-old male with recent diagnosis of biliary tract cancer status post one round of chemotherapy, who presented to the emergency room with complaints of diarrhea. He has completed chemotherapy on October 05, 2018 and then started to have diarrhea 2 days prior to presentation. In the emergency room, he was found to be neutropenic and febrile with a temperature of 100.9, and was admitted for further workup with a presumptive diagnosis of neutropenic fever. He was started on IV fluids, empiric IV antibiotics and appropriate culture studies were ordered. Oncology was consulted. Please see admission history and physical dictated by Dr. Tammy Tang on 10/17/2018. Oncology saw the patient and they agreed with the above-mentioned care. His culture results were all negative including stool studies, blood culture, urine culture, parasite screen, and influenza testing. One out of two blood culture was positive for coag-negative staph, which was likely a contamination. He was treated with Neupogen for his leukopenia and his WBC count improved from 0.4 to 7.8. His platelet count ranged from 47 on admission to lowest 15 in the hospital and started to improve. It was 33 on the day of discharge. Dr. Ricardo was consulted as most of his symptoms were suggestive of diarrhea and fever and pancytopenia due to chemotherapy rather than infectious etiology. DVT was also ruled out. Dr. Ricardo saw the patient and agreed that this is not an infectious cause. Once the patient's counts started to improve, he clinically improved. Antibiotics were stopped at the time of discharge. He was seen and examined this morning and is eager to go home and feels very good. He has been cleared for discharge from Oncology perspective. He was found to be hypokalemic throughout his hospitalization, requiring multiple supplementation. Magnesium was also checked and was supplemented when necessary. Prior to discharge, his potassium was 3.0. This is after he has received 80 mEq of potassium earlier this morning for a potassium of 2.8. He was given 40 mEq of oral potassium once more prior to discharge. He is being discharged on 20 mEq of potassium for the next 3 days and is instructed to follow up with the Oncology Clinic on Thursday that is 2 days from today with a BMP prior to his visit. Otherwise, he is hemodynamically stable for discharge. He was seen and examined prior to discharge. PHYSICAL EXAMINATION: VITAL SIGNS: Temperature 98.6, pulse of 70, respirations 18, saturating 99% on room air, blood pressure 125/56. GENERAL: No acute distress. CHEST: Clear to auscultation bilaterally. HEART: Rate and rhythm is regular. DISCHARGE PLAN: Discharge plan was discussed with the patient and his , who verbalized understanding. TIME SPENT: Total time spent in the discharge 32 minutes. Job ID: [id number]
== END 2018-10-22 16:34 | disposition home or self-care (01) | DRG 809 ==
LOC: ERS 11:45 → ONC 16:57
PROVIDERS: ADMIT Family Medicine; ATTEND Family Medicine
DX: D70.1 Agranulocytosis secondary to cancer chemotherapy (principal); C23 Malignant neoplasm of gallbladder; C22.9 Malignant neoplasm of liver, not specified as primary or secondary; E87.1 Hypo-osmolality and hyponatremia; D61.810 Antineoplastic chemotherapy induced pancytopenia; T45.1X5A Adverse effect of antineoplastic and immunosuppressive drugs, initial encounter; R50.81 Fever presenting with conditions classified elsewhere; I10 Essential (primary) hypertension; G89.3 Neoplasm related pain (acute) (chronic); F39 Unspecified mood [affective] disorder; E87.6 Hypokalemia; R19.7 Diarrhea, unspecified; Z79.899 Other long term (current) drug therapy; Z79.891 Long term (current) use of opiate analgesic; F17.220 Nicotine dependence, chewing tobacco, uncomplicated
CPT/HCPCS: 36415; 71045; 80048; 80053; 80202; 81003; 81015; 83605; 83630; 83690; 83735; 85025; 85060; 86674; 87040; 87045; 87046; 87086; 87149; 87324; 87328; 87329; 87449; 87804; 87899; 93970; J0692; J2270; J2405; J2543; J3010; J3370; J3411; J3475; J7042; J7050

== ENCOUNTER 2018-12-07 09:10 | Outpatient (CLI) | payer BC ==
[~2018-12-07 09:10] MED LIST: Iopamidol 370 76% 100 ML VIAL ONE
--- NOTE | 2018-12-07 11:39 | CT ---
CT ABDOMEN AND PELVIS WITH CONTRAST: HISTORY: Gallbladder carcinoma. COMPARISON: CT abdomen and pelvis from 09/10/2018. FINDINGS: The lung bases are clear. No pericardial effusion. There has been an interval size decrease of the malignant aishwarya hepatis lymph node, which measures 2 cm in short axis, previously 3.1 cm in short axis. There is a small focus of intraluminal mass-like enhancement of the gallbladder fundus, although the anterior hepatic component is no longer appreciat ed. There are hypodensities of the liver, in hepatic segments 7 and 8, suggestive of cysts. No intrahepa tic or extrahepatic biliary dilatation. An anterior aishwarya hepatis lymph node, which is anterior to t he portal vein, measures 7 mm in short axis, previously 1 cm. No evidence for new foci of metastatic disease. The appendix is visualized and appears normal, aside from symmetric appendicoliths. No dilated loops of large or small bowel. No free fluid within the abdomen or pelvis. Splenic granulomata are prese nt. Multiple endplate Schmorl's nodes of the lumbar spine. No suspicious osteolytic or osteoblastic lesi ons. IMPRESSION: 1. Marked interval improvement of the gallbladder fundus mass with only a faint area of enhancement remaining in the gallbladder fundus, measuring up to 2 cm in size, with no significant intrahepatic e xtension appreciated. 2. Marked size decrease of aishwarya hepatis lymph nodes. POS: [facility]
== END 2018-12-07 09:11 | disposition home or self-care (01) ==
LOC: CT 09:10
PROVIDERS: ATTEND Internal Medicine Hematology & Oncology
DX: C23 Malignant neoplasm of gallbladder (principal); K82.8 Other specified diseases of gallbladder
CPT/HCPCS: 74177; Q9967

== ENCOUNTER 2019-03-24 10:40 | Day surgery (SDC) | payer BC ==
[2019-03-24] MEDS ORDERED: diphenhydrAMINE 25 MG CAP PO SCH (11:00)
[2019-03-24] MEDS ORDERED: Acetaminophen 500 MG TAB PO SCH (11:00)
[2019-03-24] MEDS ORDERED: Ondansetron ODT 8 MG TAB PO SCH (14:45)
[2019-03-24] MEDS ORDERED: Ondansetron PF 4 MG/2 ML Vial IVP SCH (15:45)
[2019-03-24 16:53] VITALS: BP 132/77; TEMP 98.1
== END 2019-03-24 16:54 | disposition home or self-care (01) ==
LOC: ONC/OP 10:40
PROVIDERS: ATTEND Internal Medicine Hematology & Oncology
PROC: 30233R1 Transfusion of Nonautologous Platelets into Peripheral Vein, Percutaneous Approach (ICD-10-PCS; principal; 2019-03-24)
DX: D64.9 Anemia, unspecified (principal); D69.6 Thrombocytopenia, unspecified
CPT/HCPCS: 36430; 86850; 86900; 86901; P9035; Q0163

== ENCOUNTER 2019-05-30 13:47 | Emergency (ER) | payer BC ==
[2019-05-30 14:41] LABS: #Eosinphils 0.1 thou/uL (0.0-0.7); #Lymphocytes 0.9 thou/uL (1.20-3.40); #Neutrophils 5.4 thou/uL (1.40-6.50); %Basophils 0.5 % (0.0-1.0); %Eosinophils 1.2 % (0.0-10.0); %Lymphocytes 11.9 % (21.0-51.0); %Monocytes 12.9 % (0.0-10.0); %Neutrophils 73.5 % (42.0-75.0); Hemoglobin 11.1 g/dL (14.0-18.0); Mean Corpuscular HGB CONC 32.9 g/dL (32.0-36.0); Mean Corpuscular Hemoglobin 34.4 pg (27.0-31.0); Mean Platelet Volume 6.9 fL (7.4-10.4); Platelet Count 156 thou/uL (130-400); RBC Distribution Width 14.6 % (11.5-14.5); Red Blood Cell (RBC) Count 3.23 mill/uL (4.70-6.10); White Blood Cell (WBC) Count 7.4 thou/uL (4.8-10.8)
[2019-05-30 14:47] LABS: ALT (SGPT) 68 U/L (8-55); AST (SGOT) 158 U/L (5-34); Alkaline Phosphatase 616 U/L (40-110); Anion Gap 15 mmol/L (10-20); BUN (Urea Nitrogen) 10 mg/dL (8.4-25.7); Bilirubin, Total 1.1 mg/dL (0.2-1.2); Calc. Creatinine Clearance 0 mL/min (70-130); Calcium 9.4 mg/dL (7.8-10.44); Carbon Dioxide 25 mmol/L (22-29); Chloride 94 mmol/L (98-107); Estimated GFR-MDRD 63; Globulin 3.6 g/dL (2.4-3.5); Glucose 112 mg/dL (70-105); Protein, Total 7.6 g/dL (6.0-8.3); Sodium 129 mmol/L (136-145)
[2019-05-30] MEDS ORDERED: Ondansetron PF 4 MG/2 ML Vial ONE (15:56)
[2019-05-30] MEDS ORDERED: HYDROmorphone 0.5 MG/0.5 ML SYRINGE ONE ×2 (15:56→16:55)
== END 2019-05-30 18:40 | disposition home or self-care (01) ==
LOC: ERS 13:47
DX: G89.3 Neoplasm related pain (acute) (chronic) (principal); C23 Malignant neoplasm of gallbladder; C78.7 Secondary malignant neoplasm of liver and intrahepatic bile duct; F32.9 Major depressive disorder, single episode, unspecified; F17.220 Nicotine dependence, chewing tobacco, uncomplicated; I10 Essential (primary) hypertension; Z79.899 Other long term (current) drug therapy; Z79.891 Long term (current) use of opiate analgesic
CPT/HCPCS: 36415; 80053; 85025; 86850; 86900; 86901; 96361; 96374; 96375; 96376; J1170; J2405

== ENCOUNTER 2019-06-25 16:18 | Inpatient (IN) | payer BC ==
[2019-06-25 17:15] LABS: #Eosinphils 0.1 thou/uL (0.0-0.7); #Monocytes 2.1 thou/uL (0.11-0.59); #Neutrophils 13.1 thou/uL (1.40-6.50); %Eosinophils 0.3 % (0.0-10.0); %Lymphocytes 5.9 % (21.0-51.0); %Neutrophils 80.6 % (42.0-75.0); Hemoglobin 12.1 g/dL (14.0-18.0); Mean Corpuscular HGB CONC 34.4 g/dL (32.0-36.0); Mean Corpuscular Hemoglobin 34.6 pg (27.0-31.0); Mean Platelet Volume 6.9 fL (7.4-10.4); Platelet Count 106 thou/uL (130-400); RBC Distribution Width 14.8 % (11.5-14.5); Red Blood Cell (RBC) Count 3.51 mill/uL (4.70-6.10); White Blood Cell (WBC) Count 16.2 thou/uL (4.8-10.8)
[2019-06-25 17:24] LABS: Anisocytosis SLIGHT = 6-15 cells (100X) (0-5/hpf); MDiff Complete? YES; Macrocytosis SLIGHT = 6-15 cells (100X) (0-5/hpf); Platelet Morphology Comment Appears Decreased; Polychromasia SLIGHT = 2-3 cells (100X) (0-2/hpf)
[2019-06-25 17:31] LABS: ALT (SGPT) 9 U/L (8-55); AST (SGOT) 27 U/L (5-34); Alkaline Phosphatase 122 U/L (40-110); Anion Gap 13 mmol/L (10-20); BUN (Urea Nitrogen) 38 mg/dL (8.4-25.7); Bilirubin, Total 0.7 mg/dL (0.2-1.2); Calc. Creatinine Clearance 0 mL/min (70-130); Calcium 8.6 mg/dL (7.8-10.44); Carbon Dioxide 26 mmol/L (22-29); Chloride 90 mmol/L (98-107); Estimated GFR-MDRD 34; Glucose 98 mg/dL (70-105); Lipase 4 U/L (8-78); Potassium 4.9 mmol/L (3.5-5.1); Sodium 124 mmol/L (136-145)
[2019-06-25] MEDS ORDERED: Acetaminophen 500 MG TAB ONE (19:05)
[2019-06-25 23:59] LABS: Bilirubin Negative (Negative); Blood, Urine Negative (Negative); Clarity Clear (Clear); Glucose, Urine (Dipstick) Normal (Negative); Leukocyte Negative Leu/uL (Negative); Nitrite Negative (Negative); Protein, Urine (Dipstick) 10 mg/dL (Neg-Trace); Urobilinogen Normal mg/dL (Less than 2)
[2019-06-26 00:51] VITALS: BMI 31.7
[2019-06-26] MEDS ORDERED: Ondansetron ODT 4 MG TAB SL PRN (00:53)
[2019-06-26] MEDS ORDERED: Acetaminophen 325 MG TAB PO PRN ×2 (00:53→01:41)
[2019-06-26] MEDS ORDERED: Sodium Chloride 0.9% 1,000 ML IV SCH (00:53)
[2019-06-26] MEDS ORDERED: Ondansetron PF 4 MG/2 ML Vial IVP PRN (00:53)
[2019-06-26] MEDS ORDERED: Morphine 4 MG/ML VIAL SLOW IVP PRN (00:54)
[2019-06-26] MEDS ORDERED: Bisacodyl 10 MG SUPP PR PRN (01:41)
[2019-06-26] MEDS ORDERED: Senokot S 8.6-50 MG TAB PO PRN (01:41)
[2019-06-26] MEDS ORDERED: Guaifenesin DM 100-10/5 ML UDCUP PO PRN (01:41)
--- NOTE | 2019-06-26 01:50 | HP ---
REASON FOR ADMISSION: Acute kidney injury, [id number] dehydration, hyponatremia. HISTORY OF PRESENTING ILLNESS: The patient gives history of not being able to eat or drink anything for the last 2 days now. He has also stopped urinating. He was unable to get out of bed and has been feeling very weak. 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 This has been progressive, has had recent metastases to both retrobulbar area and behind the right eye. He has received nearly 7 doses of radiation treatment for the same, and 4 more are scheduled from Thursday. No fever at home. No cough or expectoration. The patient is fully oriented, and this entire history is obtained from him. PAST MEDICAL AND SURGICAL HISTORY: History of gallbladder cancer diagnosed in August of 2018. Failed chemotherapy with progressive cancer. He has multiple metastases including behind the right eye, multiple cervical lymph nodes on the left, which are visible. His entire back has multiple nodules, likely metastases, prior history of cardiac rhythm ablation, back surgery x4, hernia repair, hemorrhoid surgery, has had a stent placed to bile duct 3 to 4 weeks back at [facility], [place]. CURRENT MEDICATIONS: The patient is on: 1. MS Contin 30 mg p.o. q.12 hourly. 2. Oxycodone 15 mg p.o. q.4 hourly p.r.n. 3. Inderal 20 mg 3 times daily. 4. Venlafaxine extended release 37.5 mg twice daily. ALLERGIES: NO KNOWN DRUG ALLERGIES. PERSONAL HISTORY: Does not abuse alcohol or drugs. No history of smoking. FAMILY HISTORY: Mother at the age of 72 years, she has had history of coronary artery disease. Father has advanced Parkinson's and is living. CODE STATUS: Do not attempt to resuscitate. Power of insurance attorney is his . REVIEW OF SYSTEMS: CONSTITUTIONAL: Negative for weight loss or gain, ability to conduct usual activities. SKIN: Negative for rash, itching. EYES: Negative for double vision, pain. ENT/MOUTH: Negative for nose bleeding, neck stiffness, pain, tenderness. CARDIOVASCULAR: Negative for palpitations, dyspnea on exertion, orthopnea. RESPIRATORY: Negative for shortness of breath, wheezing, cough, hemoptysis, fever or night sweats. GASTROINTESTINAL: Negative for poor appetite, abdominal pain, heartburn, nausea , vomiting, constipation, or diarrhea. GENITOURINARY: Negative for urgency, frequency, dysuria, nocturia. MUSCULOSKELETAL: Negative for pain, swelling. NEUROLOGIC/PSYCHIATRIC: Negative for anxiety, depression. ALLERGY/IMMUNOLOGIC: Negative for skin rash, bleeding tendency. PHYSICAL EXAMINATION: GENERAL: The patient is a 54-year-old male, who is currently not in any acute distress. VITAL SIGNS: Blood pressure 120/90, pulse 120 per minute, respiratory rate 18 per minute, temperature 98.3 degrees Fahrenheit, and saturating 98% on room air. NECK: Multiple lymph nodes are palpable in the left cervical group of lymph nodes. HEENT: Eyes; extraocular ocular muscles intact. Right eye is bandaged. Left eye, pupil is reacting to light. Oral cavity, mucous membranes are dry. No exudates or congestion. CARDIOVASCULAR: S1, S2 heard. Tachycardic. RESPIRATORY: Air entry 1+ bilateral. No rales or rhonchi. ABDOMEN: Soft. Bowel sounds heard. No tenderness, rigidity, or guarding. The patient has multiple nodules on the torso, likely metastases, this is palpable. EXTREMITIES: Mild peripheral edema. No calf tenderness. VASCULAR: Peripheral pulses 1+ bilateral. No ischemic ulcerations or gangrene. CENTRAL NERVOUS SYSTEM: No gross focal deficits noted. The patient is alert and oriented well. PSYCHIATRIC: The patient's mood is euthymic. No hallucinations or delusions. LABORATORY DATA: White count of 16, H and H of 12 and 35, platelet count 106, MCV is 101 with 80% neutrophils. Sodium 124, serum chloride 90, BUN 38, creatinine 2.0, serum bicarb 26, total bilirubin 0.7, AST and ALT within normal limits, alkaline phosphatase is 122. Albumin is 3.0. Lipase is 4. CLINICAL IMPRESSION AND PLAN: The patient will be admitted to Oncology floor under observation status for severe dehydration with acute kidney injury. 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 The plan is to hydrate him and mobilize him prior to discharge. He will be on regular diet. If needed, Megace will be added. He also has plans to talk to [facility] on Thursday. Code status was discussed with him and he wants to be a do not attempt to resuscitate. He will be on normal saline at 100 mL/h. We will continue his short and long-acting morphine along with IV morphine as well for breakthrough pain. We will continue Inderal and venlafaxine as before. The patient's overall prognosis is [id number] with multiple metastases. Job ID: [id number] MTDD
[2019-06-26] MEDS: oxyCODONE 5 MG TAB PO PRN ×2 (02:34→13:15)
[2019-06-26] MEDS: Sodium Chloride 0.9% 1,000 ML IV SCH ×2 (05:20→15:38)
[2019-06-26 05:41] LABS: #Eosinphils 0.1 thou/uL (0.0-0.7); #Lymphocytes 1.1 thou/uL (1.20-3.40); #Neutrophils 11.7 thou/uL (1.40-6.50); %Basophils 0.1 % (0.0-1.0); %Eosinophils 0.5 % (0.0-10.0); %Lymphocytes 7.6 % (21.0-51.0); %Monocytes 13.4 % (0.0-10.0); %Neutrophils 78.4 % (42.0-75.0); Hemoglobin 10.9 g/dL (14.0-18.0); Mean Corpuscular HGB CONC 33.1 g/dL (32.0-36.0); Mean Corpuscular Hemoglobin 33.3 pg (27.0-31.0); Mean Platelet Volume 6.9 fL (7.4-10.4); Platelet Count 96 thou/uL (130-400); RBC Distribution Width 14.9 % (11.5-14.5); Red Blood Cell (RBC) Count 3.26 mill/uL (4.70-6.10); White Blood Cell (WBC) Count 14.9 thou/uL (4.8-10.8)
[2019-06-26 05:52] LABS: Anion Gap 14 mmol/L (10-20); BUN (Urea Nitrogen) 38 mg/dL (8.4-25.7); Calc. Creatinine Clearance 72 mL/min (70-130); Calcium 7.9 mg/dL (7.8-10.44); Carbon Dioxide 22 mmol/L (22-29); Chloride 95 mmol/L (98-107); Estimated GFR-MDRD 38; Glucose 91 mg/dL (70-105); Potassium 4.9 mmol/L (3.5-5.1); Sodium 126 mmol/L (136-145)
[2019-06-26] MEDS ORDERED: Prevnar 13-Val Conj/PF 0.5 ML SYRINGE IM ONE (09:00)
[2019-06-26] MEDS ORDERED: FLU VACC QS2019-20(6MOS UP)/PF 60 MCG/0.5 ML SYRINGE IM ONE (09:00)
[2019-06-26] MEDS: Morphine ER 30 MG TAB PO SCH ×2 (09:30→20:55)
[2019-06-26] MEDS: Enoxaparin Sodium 40 MG/0.4 ML SYRINGE SC SCH (09:31)
[2019-06-26] MEDS: Famotidine 20 MG TAB PO SCH ×2 (09:31→20:55)
[2019-06-26] MEDS: Propranolol HCl 20 MG TAB PO SCH ×3 (09:31→20:55)
[2019-06-26] MEDS: Venlafaxine XR 37.5 MG CAP PO SCH ×2 (09:31→20:57)
[2019-06-26] MEDS ORDERED: Sucralfate 1 GM/10 ML UDCUP PO PRN (13:43)
--- NOTE | 2019-06-26 13:46 | PDOC.HOSPP ---
- Subjective Encounter Date: 06/26/19 Encounter Time: 13:45 Subjective: was seen today in follow-up of generalized weakness and hyponatremia. He says he feels a little better, but continues to be very weak. - Objective Vital Signs & Weight: Vital Signs (12 hours) Temp Pulse Resp BP Pulse Ox 06/26/19 12:42 98.3 F 114 H 20 163/96 H 99 06/26/19 08:00 98.9 F 103 H 18 150/88 H 97 06/26/19 04:00 97.8 F 100 16 130/87 96 Weight Weight 254 lb 2 oz I&O: 06/25/19 06/26/19 06/27/19 06:59 06:59 06:59 Intake Total 1241 160 Balance 1241 160 Result Diagrams: 06/26/19 05:20 06/26/19 05:20 Hospitalist ROS - Medication Medications: Active Medications Generic Name Dose Route Start Last Admin Trade Name Freq PRN Reason Stop Dose Admin Enoxaparin Sodium 40 mg 06/26/19 09:00 06/26/19 09:31 Lovenox SC Not Given 09 STEPHY Famotidine 20 mg 06/26/19 09:00 06/26/19 09:31 Pepcid PO 20 mg BID STEPHY Administration Sodium Chloride 1,000 mls @ 100 mls/hr 06/26/19 01:41 06/26/19 05:20 Normal Saline 0.9% IV 1,000 mls .Q10H STEPHY Administration Morphine Sulfate 30 mg 06/26/19 09:00 06/26/19 09:30 Ms Contin PO 30 mg Q12HR STEPHY Administration Oxycodone HCl 15 mg 06/26/19 01:41 06/26/19 13:15 Oxycodone Ir PO 15 mg Q4H PRN Administration Moderate Pain (4-6) Propranolol HCl 20 mg 06/26/19 09:00 06/26/19 09:31 Inderal PO 20 mg TID STEPHY Administration Sodium Chloride 10 ml 06/26/19 09:00 06/26/19 09:32 Flush - Normal Saline IVF 10 ml Q12HR STEPHY Administration Venlafaxine HCl 37.5 mg 06/26/19 09:00 06/26/19 09:31 Effexor Xr PO 37.5 mg BID STEPHY Administration - Exam ENT: normocephalic atraumatic Heart: RRR, no murmur, no gallops, no rubs, normal peripheral pulses Respiratory: CTAB (with decreased breath sounds in the left base) Gastrointestinal: soft, non-tender, non-distended, normal bowel sounds, no palpable masses, no hepatomegaly, no splenomegaly Extremities: no clubbing, no edema (but + cyanosis of both feet, and weak distal pulses) Skin: normal turgor Hosp A/P (1) Hyponatremia Code(s): E87.1 - HYPO-OSMOLALITY AND HYPONATREMIA Status: Acute (2) Acute kidney injury Code(s): N17.9 - ACUTE KIDNEY FAILURE, UNSPECIFIED Status: Acute (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 etiology- suspect volume depletion, but will check urine and serum osmol, to rule out SIADH which is also a possibility * HTN- blood pressure is a bit elevated- will continue PRN medications, and monitor the trend * Advanced Gallbladder cancer- is contemplating Hospice care, but also wondering if it is of value to complete the palliative radiation to the left eye. He had been having this done at [facility], but is too weak to travel , and was wondering if this could be done locally. I will place a Consult to Dr. Cha, to help address these questions * A Case Management consult has been placed for Hospice Evaluation
[2019-06-26] MEDS: Ondansetron PF 4 MG/2 ML Vial IVP PRN (16:41)
[2019-06-26] MEDS: Morphine 2 MG/ML SYRINGE SLOW IVP PRN (18:08)
[2019-06-26] MEDS: Promethazine HCl 25 MG in Sodium Chloride 0.9% 50 ML IVPB PRN (18:38)
[2019-06-27] MEDS: Sodium Chloride 0.9% 1,000 ML IV SCH ×2 (01:46→11:36)
[2019-06-27] MEDS: Ondansetron PF 4 MG/2 ML Vial IVP PRN ×4 (02:17→19:44)
[2019-06-27] MEDS: Promethazine HCl 25 MG in Sodium Chloride 0.9% 50 ML IVPB PRN ×3 (03:10→17:50)
[2019-06-27 07:28] LABS: Anion Gap 14 mmol/L (10-20); BUN (Urea Nitrogen) 44 mg/dL (8.4-25.7); Calc. Creatinine Clearance 75 mL/min (70-130); Calcium 8.1 mg/dL (7.8-10.44); Carbon Dioxide 23 mmol/L (22-29); Chloride 95 mmol/L (98-107); Estimated GFR-MDRD 39; Glucose 105 mg/dL (70-105); Potassium 4.8 mmol/L (3.5-5.1); Sodium 127 mmol/L (136-145)
[2019-06-27] MEDS: Morphine ER 30 MG TAB PO SCH ×2 (09:19→19:43)
[2019-06-27] MEDS: Famotidine 20 MG TAB PO SCH ×2 (09:20→19:42)
[2019-06-27] MEDS: Propranolol HCl 20 MG TAB PO SCH ×3 (09:21→19:43)
[2019-06-27] MEDS: Venlafaxine XR 37.5 MG CAP PO SCH ×2 (09:21→19:43)
[2019-06-27] MEDS: Enoxaparin Sodium 40 MG/0.4 ML SYRINGE SC SCH (09:23)
[2019-06-27] MEDS: Morphine 2 MG/ML SYRINGE SLOW IVP PRN ×3 (11:06→19:44)
--- NOTE | 2019-06-27 13:49 | PDOC.HOSPP ---
- Subjective Encounter Date: 06/27/19 Encounter Time: 13:48 Subjective: was seen today in follow-up of advanced gallbladder cancer. He is resting comfortably. She tells me the pain is managed. - Objective Vital Signs & Weight: Vital Signs (12 hours) Temp Pulse Resp BP BP Pulse Ox 06/27/19 12:00 97.8 F 110 H 16 137/94 H 96 06/27/19 08:00 97.7 F 112 H 18 162/100 H 98 06/27/19 03:43 98.1 F 113 H 20 138/92 H 97 Weight Admit Weight 254 lb 2 oz Weight 254 lb 2 oz I&O: 06/26/19 06/27/19 06/28/19 06:59 06:59 06:59 Intake Total 1241 1060 Output Total 1000 Balance 1241 60 Result Diagrams: 06/26/19 05:20 06/27/19 07:02 Hospitalist ROS - Medication Medications: Active Medications Generic Name Dose Route Start Last Admin Trade Name Freq PRN Reason Stop Dose Admin Enoxaparin Sodium 40 mg 06/26/19 09:00 06/27/19 09:23 Lovenox SC Not Given 0900 STEPHY Famotidine 20 mg 06/26/19 09:00 06/27/19 09:20 Pepcid PO 20 mg BID STEPHY Administration Sodium Chloride 1,000 mls @ 100 mls/hr 06/26/19 01:41 06/27/19 11:36 Normal Saline 0.9% IV 1,000 mls .Q10H STEPHY Administration Promethazine HCl 25 mg/ Sodium 51 mls @ 204 mls/hr 06/26/19 18:16 06/27/19 03 :10 Chloride IVPB 51 mls Q8H PRN Administration Nausea Promethazine HCl 25 mg/ Sodium 51 mls @ 204 mls/hr 06/27/19 08:38 06/27/19 11 :30 Chloride IVPB 51 mls Q6H PRN Administration Nausea/Vomiting Morphine Sulfate 2 mg 06/26/19 01:41 06/27/19 11:06 Morphine SLOW IVP 2 mg Q4H PRN Administration Severe Pain (7-10) Morphine Sulfate 30 mg 06/26/19 09:00 06/27/19 09:19 Ms Contin PO 30 mg Q12HR STEPHY Administration Ondansetron HCl 4 mg 06/26/19 01:41 06/27/19 08:37 Zofran IVP 4 mg Q6H PRN Administration Nausea/Vomiting Oxycodone HCl 15 mg 06/26/19 01:41 06/26/19 13:15 Oxycodone Ir PO 15 mg Q4H PRN Administration Moderate Pain (4-6) Pantoprazole Sodium 40 mg 06/27/19 09:00 06/27/19 09:23 Protonix PO 40 mg DAILY STEPHY Administration Propranolol HCl 20 mg 06/26/19 09:00 06/27/19 09:21 Inderal PO 20 mg TID STEPHY Administration Sodium Chloride 10 ml 06/26/19 09:00 06/27/19 09:21 Flush - Normal Saline IVF 10 ml Q12HR STEPHY Administration Sucralfate 1 gm 06/26/19 13:43 06/27/19 00:03 Carafate PO 1 gm Q6H PRN Administration Dyspepsia Venlafaxine HCl 37.5 mg 06/26/19 09:00 06/27/19 09:21 Effexor Xr PO 37.5 mg BID STEPHY Administration - Exam Eye: PERRL (proptosis of the left eye) Heart: RRR, no murmur, no gallops, no rubs, normal peripheral pulses Respiratory: CTAB, no wheezes, no rales, no ronchi, normal chest expansion Gastrointestinal: soft, non-tender, non-distended, normal bowel sounds Extremities: 1+ LE edema Hosp A/P (1) Hyponatremia Code(s): E87.1 - HYPO-OSMOLALITY AND HYPONATREMIA Status: Acute (2) Acute kidney injury Code(s): N17.9 - ACUTE KIDNEY FAILURE, UNSPECIFIED Status: Acute (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 They will meet with [facility] this afternoon, and then home after the arrangements are made.
[2019-06-27 19:43] VITALS: BP 136/91; TEMP 97.7
--- NOTE | 2019-06-28 04:07 | DIS ---
DATE OF ADMISSION: 06/26/2019 DATE OF DISCHARGE: 06/27/2019 DISCHARGE DISPOSITION: Home with home hospice. DISCHARGE DIAGNOSES: 1. Acute kidney injury. 2. Hyponatremia. 3. Advanced gallbladder cancer. DISCHARGE MEDICATIONS: Include: 1. Bupropion XL 300 mg daily. 2. MS Contin 100 mg q.12. 3. Zofran 8 mg q.8 as needed. 4. Oxycodone 30 mg q.4. 5. Inderal 20 mg t.i.d. 6. Venlafaxine 37.5 mg p.o. twice a day. 7. Diphenoxylate atropine 2.5/0.25 mg q.6. 8. Imodium 2 mg p.r.n. 9. Potassium chloride 20 mEq daily. 10. Florastor 250 mg daily. CODE STATUS: DNAR. ALLERGIES: NO KNOWN DRUG ALLERGIES. HOSPITAL COURSE: is a pleasant 54-year-old gentleman, who presented to the emergency room with severe weakness as well as nausea and vomiting. He has a history of advanced gallbladder cancer in which he was getting palliative radiation treatment at [facility]. He was found to be hyponatremic, as well as volume depleted with acute kidney injury. He was started on IV hydration for this. He improved with regard to his symptoms of nausea and vomiting, and his pain was also controlled with MS Contin. The patient has multiple metastatic lesions, one to the right eye and he had been getting palliative radiation treatment for this. However, at this point, he feels too weak to travel to [place] in order to get these treatments and he has become tired with active care. For this reason, he met with his oncologist and he made the informed decision that is to discontinue active chemotherapy and cancer treatment, and to be discharged home with home hospice. He will be meeting with [facility] hospice staff today and once these arrangements are made, he will be discharged home on home hospice. Job ID: [id number]
--- NOTE | 2019-06-28 07:49 | CON ---
DATE OF CONSULTATION: REASON FOR CONSULTATION: Gallbladder cancer. HISTORY OF PRESENT ILLNESS: A 54-year-old male with cancer of the gallbladder, status post chemotherapy, currently with diffuse metastatic disease who reported to the hospital with dehydration and severe weakness. The patient had been treated with therapy with curative intent. However, was not a surgical candidate and progressed through chemotherapy with recent diagnosis of metastases, both right and left eyes and was receiving radiation to the right eye at [facility], last received on Thursday. The patient states he is due for 4 more doses. His vision has been mildly compromised where he had a lot of swelling and pain, which has mostly resolved with radiation. I discussed continuing radiation at [facility] or here versus discontinuing as he has already had a good palliative benefit from this radiation and overall is not tolerating it very well and he has decided against doing anymore at this time. [facility] supposedly told him to consider hospice as there was nothing systemically they could offer. I have discussed this with the patient and his as well and given his extremely poor performance status and refractory and diffusely metastatic cancer. I agree that hospice would be best for him. He and his have agreed. The patient does state that he has improved since admission with fluids and his pain is controlled. He does complain of mild nausea. REVIEW OF SYSTEMS: Ten-point review of systems negative except as per HPI. PAST MEDICAL HISTORY: Gallbladder cancer, depression. PAST SURGICAL HISTORY: MediPort placement, back surgery, hernia repair, hemorrhoid surgery, biliary duct stenting. MEDICATIONS: Reviewed. ALLERGIES: NO KNOWN DRUG ALLERGIES. SOCIAL HISTORY: No smoking. FAMILY HISTORY: No cancer. PHYSICAL EXAMINATION: VITAL SIGNS: Temperature 97.8, pulse 110, respirations 16, saturating 96% on room air, blood pressure 138 to 162 over 92 to 100. GENERAL APPEARANCE: The patient is lying in bed, in no acute distress. HEENT: Right eye is erythematous. CARDIOVASCULAR: Tachycardic. RESPIRATORY: Respirations nonlabored. ABDOMEN: Soft, nondistended, nontender. LYMPHATICS: No cervical, supraclavicular lymphadenopathy or palpable. NEUROLOGIC: Cranial nerves 2 through 12 are grossly intact including right eye which does react to light. LABORATORY DATA: White blood cells 14.9, hemoglobin 10.9, platelets 96. Sodium 127, potassium 4.8, BUN 44, creatinine 1.79. ASSESSMENT AND PLAN: A 54-year-old male with metastatic gallbladder cancer with metastasis to bilateral eyes, receiving radiation to the right eye at [facility], presenting with failure to thrive, weakness. The patient does not want to continue radiation to the eye at this time and is not a candidate for any further systemic treatment with chemotherapy or other agents. I have discussed this with the patient and his and they are open to hospice and spoken to them yesterday and would like to take him home. Hopefully, he can be discharged with home hospice today. Recommend continuing pain control and antiemetics. Job ID: [id number] MTDD
--- NOTE | 2019-06-28 17:28 | PQF ---
VIVIAN SZYMANSKI TONI MD [id number] CLINICAL DOCUMENTATION CLARIFICATION FORM: POST DISCHARGE Addendum to original discharge summary date: ____ Late entry note date: __ DATE: 06/28/19 ATTN: Oj Cheema Please exercise your independent, professional judgment in responding to the clarification form. Clinical indicators are provided on the bottom of this form for your review Can you please further clarify if SIADH is ruled in or ruled out? SIADH [ X ] Ruled in diagnosis [ ] Continue to treat [ ] Resolved [ ] Ruled out diagnosis [ ] Cannot rule out diagnosis [ ] Other diagnosis [ ] Unable to determine In addition, please specify: Present on Admission (POA): [ X Yes [ ] No [ ] Unable to determine For continuity of documentation, please document condition throughout progress notes and discharge summary. Thank You. CLINICAL INDICATORS - SIGNS / SYMPTOMS / LABS Hospitalist PN Dr. Marie pg.4- Hyponatremia-? Etiology-suspect volume depletion Hospitalist PN Dr. Marie pg.4-rule out SIADH which is also a possibility Hospitalist PN 06/27 Dr. Marie pg.5- Hyponatremia likely a combination of volume depletion and SIADH DS pg.1- Discharge diagnosis: Hyponatremia DS pgt.1- he was found to be hyponatremic as well as volume depleted with acute kidney injury RISK FACTORS Dehydration- H and P pg.1 Acute kidney injury- H and P pg.1 Bladder cancer- Hospitalist PN 06/27/19 Dr. Marie TREATMENTS IV Hydration- DS pg.1 Sodium Monitoring- Laboratory Sodium Chloride 1000ml IV- MAR (This form is maintained as a part of the permanent medical record) 2014 [employer]. All Rights Reserved Owen [email or web address] [not provided] MTDD
== END 2019-06-27 21:08 | disposition hospice, home (50) | DRG 644 ==
LOC: ERS 16:18 → ONC 06-26 00:40 → OBSVTOIN 06-26 00:42 → ONC 06-26 00:42
PROVIDERS: ADMIT Internal Medicine; ATTEND Internal Medicine
DX: E22.2 Syndrome of inappropriate secretion of antidiuretic hormone (principal); N17.9 Acute kidney failure, unspecified; C23 Malignant neoplasm of gallbladder; C77.0 Secondary and unspecified malignant neoplasm of lymph nodes of head, face and neck; C79.49 Secondary malignant neoplasm of other parts of nervous system; C24.9 Malignant neoplasm of biliary tract, unspecified; Z66 Do not resuscitate; E86.0 Dehydration; I10 Essential (primary) hypertension; F32.9 Major depressive disorder, single episode, unspecified; F17.220 Nicotine dependence, chewing tobacco, uncomplicated; E86.9 Volume depletion, unspecified; Z79.899 Other long term (current) drug therapy; Z28.21 Immunization not carried out because of patient refusal
CPT/HCPCS: 80048; 80053; 81003; 83690; 83930; 83935; 84300; 85025; 96360; 96361; J2270; J2405; J2550